=== PATIENT | female | born 1950 | race Caucasian/White ===

== ENCOUNTER → 2018-02-17 14:30 | Outpatient (CLI) | payer MEDICARE, OTHER, SELFPAY ==
--- NOTE | 2018-02-17 14:30 | DT_ITS ---
This patient was seen during an EMR downtime February 17, 2018 - February 24, 2018. This patient may have a combination of paper and electronic documentation or all paper documentation. All documentation is viewable within the e-chart portion of [facility] for each patient visit.
== END ==
PROVIDERS: Family Provider Family Medicine; PCP Family Medicine; Visit Provider Family Medicine
DX: E11.65 Type 2 diabetes mellitus with hyperglycemia (principal)
CPT/HCPCS: 36415; 82533

== ENCOUNTER → 2018-02-25 11:50 | Outpatient (CLI) | payer MEDICARE, OTHER, SELFPAY ==
[2018-02-25 15:42] LABS: Absolute Lymphocyte Count 3.57 X10^3/ul (0.83-4.51); Absolute Neutrophil Count 3.9 X10^3/uL (2.0-7.7); Basophil# 0.18 X10^3/uL; Eosinophil# 0.47 X10^3/uL; Eosinophils% 5.3 % (0-5); Hematocrit 48.9 % (37-47); Hemoglobin 15.4 g/dl (12.0-15.0); Lymphocyte # 3.57 X10^3/ul (4.0); Lymphocyte % 40.4 % (19-41); Mean Corp Hgb Conc 31.5 g/gl (32-36); Mean Corpuscular Hgb 29.1 pg (27.0-32.0); Mean Corpuscular Volume 92.4 fL (81-99); Mean Platelet Vol. 10.8 fl (6.2-12.0); Monocyte# 0.74 X10^3/uL; Monocyte% 8.4 % (0-10); Neutrophil # 3.85 X10^3/uL (2.7-7.7); Neutrophil % 43.6 % (47-70); Platelet Count 250 K/mm3 (150-450); RBC Distribution Width CV 14.2 % (11.6-14.6); RBC Distribution Width SD 48.1 fl (35.1-43.9); Red Blood Count 5.29 M/mm3 (4.2-5.4); White Blood Count 8.8 K/mm3 (4.4-11.0)
[2018-02-25 15:52] LABS: POSITIVE COUNT NO; POSITIVE DIFFERENTIAL NO; POSITIVE MORPHOLOGY NO
[2018-02-25 16:07] LABS: ALB/GLOB Ratio 0.9 RATIO (0.9-2.4); AST(SGOT) 49 U/L (15-37); Alanine Aminotransfer ALT/SGPT 65 U/L (13-56); Albumin, Serum 3.4 g/dL (3.2-5.0); Alkaline Phosphatase 66 U/L (45-117); Anion Gap 11 (5-15); BUN 12 mg/dL (7-18); BUN/Creat Ratio 12.7 RATIO (10-20); Calcium,Total 8.6 mg/dL (8.5-10.1); Chloride 103 mmol/L (98-107); Creatinine, Serum 0.94 mg/dL (0.55-1.02); EST Glomerular Filtration Rate 63 mL/min (>60); Est Glom Filt Rate - Afr Amer 76 mL/min (>60); Globulin 3.8 g/dL (2.2-4.2); Glucose 159 mg/dL (74-106); Potassium 4.2 mmol/L (3.5-5.1); Protein, Total 7.2 g/dL (6.4-8.2); Sodium Level 140 mmol/L (136-145); Thyroid Stim Hormone (TSH) 0.97 uIU/mL (0.358-3.74)
[2018-02-26 08:40] LABS: Vitamin B12 416 pg/mL (211-911); Vitamin D,25 Hydroxy 24.4 ng/mL (29.95-100.01)
[2018-02-28 18:12] LABS: ANTINUCLEAR ANTIBODIES DIRECT Negative (Negative)
== END ==
PROVIDERS: Family Provider Family Medicine; PCP Family Medicine; Visit Provider Family Medicine
DX: E11.9 Type 2 diabetes mellitus without complications (principal); E55.9 Vitamin D deficiency, unspecified; R53.83 Other fatigue
CPT/HCPCS: 36415; 80053; 82306; 82607; 84443; 85025; 86038; 86225; 86235

== ENCOUNTER → 2018-04-15 11:05 | Outpatient (CLI) | payer MEDICARE, OTHER, SELFPAY ==
[2018-04-15 12:53] LABS: Hemoglobin A1c 7.5 % (4.2-6.3)
[2018-04-15 13:04] LABS: Cholesterol 153 mg/dL (200); High Density Lipoprotein 26 mg/dL; Triglycerides 485 mg/dL
[2018-04-15 13:05] LABS: Microalbumin:Creatinine Ratio 3.9 mg/g CRE (<30 mg/g CRE)
== END ==
PROVIDERS: Family Provider Family Medicine; PCP Family Medicine; Visit Provider Nurse Practitioner
DX: E11.9 Type 2 diabetes mellitus without complications (principal)
CPT/HCPCS: 36415; 80061; 82043; 82570; 83036

== ENCOUNTER → 2018-05-07 15:21 | Outpatient (CLI) | payer MEDICARE, OTHER, SELFPAY | PROVIDERS: Family Provider Family Medicine; PCP Family Medicine; Visit Provider Family Medicine | DX: M51.36 Other intervertebral disc degeneration, lumbar region (principal); M54.16 Radiculopathy, lumbar region | CPT/HCPCS: 72148 ==

== ENCOUNTER → 2018-05-28 12:47 | Outpatient (CLI) | payer MEDICARE, OTHER, SELFPAY ==
--- NOTE | 2018-05-28 12:49 | BI_ITS ---
MAMMOGRAPHY - BILATERAL SCREENING REASON FOR EXAM: Female, 68 years old. Routine annual screening examination. PERTINENT HISTORY: Aunt with breast cancer. TECHNIQUE: Digital bilateral breast willie (3D mammographic acquisition) in the CC and MLO projections. 2-D mediolateral oblique (MLO) and craniocaudad (CC) views of both breasts were obtained. CAD: Full Field Digital Mammography with Computer Added Detection was performed. COMPARISON: Comparison is made with prior examination is May 27, 2017 and May 25, 2016. FINDINGS: Breast Composition: The breasts are heterogeneously dense, which may obscure small masses. There are no dominant masses or suspicious calcifications. Stable small benign-appearing bilateral axillary lymph nodes. A tissue clip marker is seen in the upper central portion of the left breast. No other significant abnormalities are identified. There has been no significant change since the prior study. BI/SCREENING MAMM (CAD), BILAT IMPRESSION: Stable bilateral screening mammogram. Yearly follow-up mammogram recommended. (A) ASSESSMENT CATEGORY: BIRADS Category 2: Benign. A letter regarding these results will be sent to the patient by the facility within 30 days. Approximately 10% of breast cancers are not detected by mammography. A normal mammogram should not delay biopsy of a clinically suspicious abnormality. [id number] Electronically Signed: Timothy Blnut MD at 12:37 EDT Tel [phone], Service support ,
== END ==
PROVIDERS: Family Provider Family Medicine; PCP Family Medicine; Visit Provider Family Medicine
DX: Z12.31 Encounter for screening mammogram for malignant neoplasm of breast (principal)
CPT/HCPCS: 77063; 77067

== ENCOUNTER → 2019-06-01 15:10 | Outpatient (CLI) | payer MEDICARE, OTHER, SELFPAY ==
--- NOTE | 2019-06-01 15:15 | BI_ITS ---
MAMMOGRAPHY - BILATERAL SCREENING REASON FOR EXAM: Female, 69 years old. Routine annual screening examination. PERTINENT HISTORY: Aunt with breast cancer. Prior right excisional breast biopsy and left stereotactic breast biopsy. TECHNIQUE: Digital bilateral breast shantell (3D mammographic acquisition) in the CC and MLO projections. 2-D mediolateral oblique (MLO) and craniocaudad (CC) views of both breasts were obtained. CAD: Full Field Digital Mammography with Computer Added Detection was performed. COMPARISON: Comparison is made with prior examination dated May 28, 2018 and May 27, 2017. FINDINGS: Breast Composition: The breasts are heterogeneously dense, which may obscure small masses. There are no dominant masses or suspicious calcifications. Findings suggestive of a 2 cm nodule in the retroareolar region of the right breast. Correlation with ultrasound is suggested No other significant abnormalities are identified. BI/SCREEN MAMM (CAD) W/SHANTELL BILAT IMPRESSION: Questionable nodular density in the retroareolar region of the right breast as described. Correlation with ultrasound is recommended. ASSESSMENT CATEGORY: BIRADS Category 0: Incomplete. Need additional imaging evaluation. A letter regarding these results will be sent to the patient by the facility within 30 days. Approximately 10% of breast cancers are not detected by mammography. A normal mammogram should not delay biopsy of a clinically suspicious abnormality. [id number] Electronically Signed: Timothy Blunt, at 8:32 EDT , Service support ,
== END ==
PROVIDERS: Family Provider Family Medicine; PCP Family Medicine; Referring Provider Family Medicine; Visit Provider Family Medicine
DX: Z12.31 Encounter for screening mammogram for malignant neoplasm of breast (principal)
CPT/HCPCS: 77063; 77067

== ENCOUNTER → 2019-06-04 14:48 | Outpatient (CLI) | payer MEDICARE, OTHER, SELFPAY ==
--- NOTE | 2019-06-04 14:51 | US_ITS ---
STUDY: ULTRASOUND BREAST - RIGHT REASON FOR EXAM: Female, 69 years old. Right breast nodule. TECHNIQUE: Axial and longitudinal images of the RIGHT breast were performed with a high resolution ultrasound transducer. COMPARISON: Comparison is made with prior mammogram dated June 01, 2019. FINDINGS: RIGHT Breast: There is a 4.2 mm x 4.3 mm x 3.7 mm cyst at the 2:00 position the breast at 4 cm from nipple. This corresponds to the mammographic findings. US/Breast Complete Unilateral IMPRESSION: The mammographic abnormality corresponds to a 4.2 mm x 3.7 mm x 4.3 mm cyst. ASSESSMENT CATEGORY: BIRADS Category 2: Benign. A letter regarding these results will be sent to the patient by the facility within 30 days. Electronically Signed: Timothy Blunt, at 8:26 EDT , Service support ,
== END ==
PROVIDERS: Family Provider Family Medicine; PCP Family Medicine; Referring Provider Family Medicine; Visit Provider Family Medicine
DX: N63.41 Unspecified lump in right breast, subareolar (principal)
CPT/HCPCS: 76641

== ENCOUNTER 2020-10-28 15:30 | Outpatient (RCR) | payer MEDICARE, OTHER, SELFPAY ==
--- NOTE | 2020-08-09 11:58 | HP.PTEVAL ---
Patient's Visit Information ONEAL BROWNE is a 70 year old F referred to Physical Therapy by Dr. Hair Boudreaux DO with a diagnosis of DDD s/p decompression L2-L5 07/19. Date of Evaluation: 08/09/20 Physical Therapist: Aayush Beltran, DPT, OCS, CSCS - Visit Plan Frequency: 3x /Week Duration: 4-6 Weeks Plan: 3x/week for 4-6 weeks for. 1. LB AROM flexion and extension stretching adn rotation. 2. Scar massage, STM LB,s tretch hip flexors. 3. core strength mat to gym adn progress HEP. 4. Eventual general strength - Subjective 3 weeks ago around 07/19 had spina decompression in lumbar area. Should have been done two years ago. She has chronic LBP and walking less and less. Found balance was effected. Had pain management for long time and got injections and meds. Had MRI [facility] began the process of spinal chord stimulator which helped with pain for 3 months unbelievably. Then did not help anymore. Pain returned. Saw Dr. Boudreaux a year later and had a lot of deterioration. Had surgery this month. Did real well. Went home and anaesthesia wore off and morphine wore off and felt worse. Currently feeling like she is swollen. Pain lately is up to 6/10 all the time, worse walking to 8/10. Relieved with sitting comfy chair and ice. No exercises. Sleepin hours at a time out of 9 normal. 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 Dresses self, bathroom self , shower is hardest but standing in shower long time is tough. Has shower chair. Has two walkers at home. Steps done on own but she hurts. Not employed. Wants to go to [facility] for winter. - Pain LBP Pain Intensity (Out of 10): 6 Pain Intensity Range: 6, 8 - Objective Walks 250 feet to therapy room hunching further as she goes adn painful in LB. Tires quickly.,needs to sit half way there. Transfers are I. Movement is painful. LB AROM ext barely to neutral and painful centrally, flexion is mod limtied, SB is max limited. Hip flexors max tight. reflexes 1/3 patella and achilles. Sensation LE WNl to gross light touch. Strength LE 4/5 without myotomal problems. core strength 3 extension and 3 flexion. Functionally pt is limtied with mobility and hunches easily , hesitates to stand up tall buit can with VC for a couple minutes. Incision is central in LB and healed well, moderate scar tissue underneath central incision. Battery stil present L LB. Very tight posterior tissue. - Goals Goal 1:: Pt ambulate into adn out of PT without hunching or increased pain I. Goal Time Frame: 4-6 Weeks Goal 2:: Pt have functional LB AROM without pain at rest. Goal Time Frame: 4-6 Weeks Goal 3:: Pt feel 75% better overall in mobility adn pain 2/10 at worst. Goal Time Frame: 4-6 Weeks Goal 4:: Oswestry <12 score. Goal Time Frame: 4-6 Weeks - Rehabilitation Potential Physical Therapy Diagnosis: DDD Rehabilitation Potential: Fair - Anticipated Interventions Patient/Client Instruction: Educate patient on: Condition, Plan of Care For the Purpose of:: To decrease pain, To increase ROM, To improve muscle performance and motor function, To increase tolerance to activity/condition/position Therapeutic Exercise to Include: Strength training, Postural training, Flexibilty training, Gait and locomotor training, Neuromotor development, Passive ROM, Active ROM, Scapular Strength/Stabilization For the Purpose of:: To decrease pain, To increase ROM, To improve muscle performance and motor function, To increase tolerance to activity/condition/position, To improve ability of physical actions for home/community/work/leisure Manual Therapy Techniques to Include: Scar massage, Soft tissue mobilization For the Purpose of:: To decrease pain, To increase ROM Thermo therapy (hot pack): Yes For the Purpose of:: To decrease pain Thank you for the opportunity to evaluate your patient. For Medicare and Medicare HMO plans, please review the plan of care and approve it. It will need to be FAXED BACK to us at [phone] for Medicare purposes. For Medicare only, by signing this I certify the plan of care. Please let me know if there are questions or concerns regarding this plan of care. Physician Signature: Date:
--- NOTE | 2020-09-02 14:23 | HP.PTREVAL ---
Dr. Hair Boudreaux, DO, It has been my pleasure to treat ONEAL BROWNE over the last 7 visits for DDD s/p decompression L2-L5 07/19. Please see the progress note below for an update on the physical therapy plan of care! Subjective: Better but not where I want to be yet. I can walk further without having to stop and sit. Went to [employer] yesterday for 20 minutes and could make it, that is good. Sleep is better. Gets 6 hours at a time. Pain this week up to 6/[address] Boudreaux said doing great and wants more therapy. Pt feels like she wants to be stronger to walk further and ride bicycle up to 14 miles..Doing HEP at home of walking with daily acitivites, doing original HEP fairly regularly. Objective/Function: Back extensions till painful and limited but flexiona dn SB are full and without pain today. walks slow with wide RADHIKA but improving, steps recirpocal with one rail, needs to rest after steps adn 100 feet ambulation in chair due to fatigue, not pain. Overall doing well and appropriate to cotninue per POC adn towards goals with fair prognosis. Plan Plan: 2x/week for 4 weeks. Please work toward home core strength on mat, continue LE and postural strength and conditioning toward I. Walking ad steps should be included. Goals Goal 1:: Pt ambulate into adn out of PT without hunching or increased pain I. Goal Time Frame: 4-6 Weeks Goal Progress: met, very fatigued. Goal 2:: Pt have functional LB AROM without pain at rest. Goal Time Frame: 4-6 Weeks Goal Progress: Progressing Goal 3:: Pt feel 75% better overall in mobility adn pain 2/10 at worst. Goal Time Frame: 4-6 Weeks Goal Progress: Progressing Goal 4:: Oswestry <12 score. Goal Time Frame: 4-6 Weeks Goal Progress: Progressing Goal 5:: Pt ambulate into and out of PT and one flight steps without hunching or resting from fatigue. Goal Time Frame: 4-6 Weeks Goal Progress: NEW GOAL Anticipated Interventions Patient/Client Instruction: Educate patient on: Condition, Plan of Care For the Purpose of:: To decrease pain, To increase ROM, To improve muscle performance and motor function, To increase tolerance to activity/condition/position Therapeutic Exercise to Include: Strength training, Postural training, Flexibilty training, Gait and locomotor training, Neuromotor development, Passive ROM, Active ROM, Scapular Strength/Stabilization For the Purpose of:: To decrease pain, To increase ROM, To improve muscle performance and motor function, To increase tolerance to activity/condition/position, To improve ability of physical actions for home/community/work/leisure Manual Therapy Techniques to Include: Scar massage, Soft tissue mobilization For the Purpose of:: To decrease pain, To increase ROM Thermo therapy (hot pack): Yes For the Purpose of:: To decrease pain Please do not hesitate to contact me at [phone] by phone or if you have questions or concerns regarding this new plan of care! Sincerely, Aayush Beltran, DPT, OCS, CSCS
--- NOTE | 2020-09-28 15:14 | HP.PTREVAL ---
Dr. Hair Boudreaux, DO, It has been my pleasure to treat ONEAL BROWNE over the last 12 visits for DDD s/p decompression L2-L5 07/19. Please see the progress note below for an update on the physical therapy plan of care! Subjective: Much improved but not great. In a FM flare. Back feels good, thinking about going to house in [place] due to FM. Pain is 0-3/10 in LB but rest of body hurts due to FM. Activities are OK but poor endurance and fatigues easy. Rotating body much easier nowadays. Nerve pain in butt and legs are gone. 50% better overall. To doctor next week. Stairs much easier. Objective/Function: LB AROM ext mildly limtied adn other ROM full adn none are painful. Steps reciprocal without pain. Walks I with wide RADHIKA giving trendelenberg appearance but can correct to better RADHIKA with VC safely. Overall doing great with back, FM flare throws a wrench in things. Mild SOB after steps adn many c/o overall body pain. Plan Plan: f/u 3-4 weeks to check ROM, overall pain, and consider d/c if doing well vs starting gym program if desired. Pt did not wish to start gym program right away. Goal is to maintain improvement in goals without consistent therapy adn fair prognosis. Goals Goal 1:: Pt ambulate into adn out of PT without hunching or increased pain I. Goal Time Frame: 4-6 Weeks Goal Progress: Goal Met Goal 2:: Pt have functional LB AROM without pain at rest. Goal Time Frame: 4-6 Weeks Goal Progress: Goal Met Goal 3:: Pt feel 75% better overall in mobility adn pain 2/10 at worst. Goal Time Frame: 4-6 Weeks Goal Progress: Progressing Goal 4:: Oswestry <12 score. Goal Time Frame: 4-6 Weeks Goal Progress: NT, electric out. Goal 5:: Pt ambulate into and out of PT and one flight steps without hunching or resting from fatigue. Goal Time Frame: 4-6 Weeks Goal Progress: Goal Met Anticipated Interventions Patient/Client Instruction: Educate patient on: Condition, Plan of Care For the Purpose of:: To decrease pain, To increase ROM, To improve muscle performance and motor function, To increase tolerance to activity/condition/position Therapeutic Exercise to Include: Strength training, Postural training, Flexibilty training, Gait and locomotor training, Neuromotor development, Passive ROM, Active ROM, Scapular Strength/Stabilization For the Purpose of:: To decrease pain, To increase ROM, To improve muscle performance and motor function, To increase tolerance to activity/condition/position, To improve ability of physical actions for home/community/work/leisure Manual Therapy Techniques to Include: Scar massage, Soft tissue mobilization For the Purpose of:: To decrease pain, To increase ROM Thermo therapy (hot pack): Yes For the Purpose of:: To decrease pain Please do not hesitate to contact me at [phone] by phone or if you have questions or concerns regarding this new plan of care! Sincerely, Aayush Beltran, DPT, OCS, CSCS
--- NOTE | 2020-10-28 16:03 | HP.PTREVAL ---
Dr. Hair Boudreaux, DO, It has been my pleasure to treat ONEAL BROWNE over the last 13 visits for DDD s/p decompression L2-L5 07/19. Please see the progress note below for an update on the physical therapy plan of care! Subjective: Went to see surgeon who saw my report. Got an upwalker and is using it to go longer distances as she was still limited at grocery store. Walks further with it adn gets stronger and increased endurance. Otherwise gets pain in back if walks too far. Drove self to therapy today. Pain is L LB. 7/10 trasniently until sits. Is functional with ambulating with up walker which triples her walking distance. Sleep is OK. Can lie flat without issues. Doing exercises at home adn walking around at home without walker. Can walk 3x further now then prior to surgery. My balance is good. Objective/Function: RsB causes L LBP as does extension. tender in L Lumbar paraspinals and glut. Strength 3+ hip ext adn abd B. Pt walks with up walker well with good step length adn speed. She walk short distances without it easilya nd safely but younger out to flexed psotiion quickly and c/o L LB tightness. Overall improving slowly, appropriate to cotninue for L LB soft tissue work. Fair prognosis. Plan Plan: 2x/week for 2-4 weeks for: 1. MH to L LB. 2. STM to L LB. 3. Stretching to L LB paraspinals into R sB and rotation and into gluts and ITB L. Pt to do strength adn walking herself at home , please stick to manual and STM and stretching. Goals Goal 1:: Pt ambulate into adn out of PT without hunching or increased pain I. Goal Time Frame: 4-6 Weeks Goal Progress: Goal Met Goal 2:: Pt have functional LB AROM without pain at rest. Goal Time Frame: 4-6 Weeks Goal Progress: Goal Met Goal 3:: Pt feel 75% better overall in mobility adn pain 2/10 at worst. Goal Time Frame: 4-6 Weeks Goal Progress: Progressing Goal 4:: Oswestry <12 score. Goal Time Frame: 4-6 Weeks Goal Progress: Progressing Goal 5:: Pt cotninue to progress subjectively with home walking and strength. Goal Time Frame: 2-4 Weeks Goal Progress: NEW GOAL Goal 6:: abolish tightness in LB L with movement Goal Time Frame: 2-4 Weeks Goal Progress: NEW GOAL Anticipated Interventions Patient/Client Instruction: Educate patient on: Condition, Plan of Care For the Purpose of:: To decrease pain, To increase ROM, To improve muscle performance and motor function, To increase tolerance to activity/condition/position Therapeutic Exercise to Include: Strength training, Postural training, Flexibilty training, Gait and locomotor training, Neuromotor development, Passive ROM, Active ROM, Scapular Strength/Stabilization For the Purpose of:: To decrease pain, To increase ROM, To improve muscle performance and motor function, To increase tolerance to activity/condition/position, To improve ability of physical actions for home/community/work/leisure Manual Therapy Techniques to Include: Scar massage, Soft tissue mobilization For the Purpose of:: To decrease pain, To increase ROM Thermo therapy (hot pack): Yes For the Purpose of:: To decrease pain Please do not hesitate to contact me at [phone] by phone or if you have questions or concerns regarding this new plan of care! Sincerely, Aayush Beltran, DPT, OCS, CSCS
--- NOTE | 2020-11-29 18:00 | HP.PTDCNRP_ITS ---
ONEAL BROWNE was seen in my office for initial evaluation on 08/09/20. The following Plan of Care was established for this patient: Initial Frequency: 3x /Week Initial Duration: 4-6 Weeks Patient/Client Instruction: Educate patient on: Condition, Plan of Care For the Purpose of:: To decrease pain, To increase ROM, To improve muscle performance and motor function, To increase tolerance to activity/condition/position Therapeutic Exercise to Include: Strength training, Postural training, Flexibilty training, Gait and locomotor training, Neuromotor development, Passive ROM, Active ROM, Scapular Strength/Stabilization For the Purpose of:: To decrease pain, To increase ROM, To improve muscle performance and motor function, To increase tolerance to activity/condition/position, To improve ability of physical actions for home/c ommunity/work/leisure Manual Therapy Techniques to Include: Scar massage, Soft tissue mobilization For the Purpose of:: To decrease pain, To increase ROM Thermo therapy (hot pack): Yes For the Purpose of:: To decrease pain This patient was last seen in our office 10/28/20. Pertinent comments regarding their Physical therapy will appear below: Pt seen 13 visits of POC and was scheduled to continue. However, upon calling her on 11/29, she stated that doctor injected her adn she is doing better adn does not need to return to therapy. I will discontinue at this point at her request. At this point I will be discontinuing this patient from physical therapy. I would be happy to see this patient again in the future if found appropriate by the physician. Thank you! Aayush Beltran, DPT, OCS, CSCS
== END 2020-10-28 19:00 | disposition home or self-care (01) ==
LOC: PT 15:30
PROVIDERS: PCP Family Medicine; Referring Provider Orthopaedic Surgery Orthopaedic Surgery of the Spine; Visit Provider Orthopaedic Surgery Orthopaedic Surgery of the Spine
DX: Z47.89 Encounter for other orthopedic aftercare (principal); M51.36 Other intervertebral disc degeneration, lumbar region
CPT/HCPCS: 97110; 97140; 97162; 97164

== ENCOUNTER 2020-11-17 11:01 | Outpatient (RCR) | payer MEDICARE, OTHER, SELFPAY ==
[2018-07-03 12:50] VITALS: BMI 37.8
[2020-11-17] MEDS: COVID-19 VACC, MRNA(PFIZER)/PF 30 MCG/0.3 ML SYRINGE IM (13:07)
[2020-12-08] MEDS: COVID-19 VACC, MRNA(PFIZER)/PF 30 MCG/0.3 ML SYRINGE IM (13:31)
== END 2020-11-17 23:59 ==
LOC: IMMUN 11:01
PROVIDERS: PCP Family Medicine; Visit Provider Family Medicine
DX: Z23 Encounter for immunization (principal)
CPT/HCPCS: 0001A; 0002A; 91300

== ENCOUNTER 2021-04-02 07:48 | Emergency (ER) | payer MEDICARE, OTHER, SELFPAY ==
[2021-04-02] VITALS (10 sets, daily range): BP systolic 113–164; BP diastolic 62–101; PULSE 84–95; RESP 14–20; TEMP 36.7–37.4; O2SAT 6–96; BMI 44.4
--- NOTE | 2021-04-02 07:59 | ED.VIS.BACK ---
HPI History of Present Illness Chief Complaint: Back Informant: patient and spouse/S.O. Onset/Context/Timing Onset: Days Context: Gradual Onset Narrative Narrative: Patient is a 71-year-old female with extensive back history presenting with intractable back pain. Patient had a repeat spinal surgery approximately 10 days ago. This was performed by Dr. Boudreaux at [facility]. She states that she had a bulging disc that was pressing on her lower spinal cord. Then 4 days ago she had a repeat procedure because her wound had opened up and it had to be cleaned out. She was discharged home even though she did not feel safe going home. She has been taking Flexeril and 10 mg of Percocet with no relief of her pain. She notes that she has been able to pee all night. She tried to sit on the toilet and then could not get up. She had worsening pain in her lower back. States does really radiate down either legs. She notes that her legs return to feel numb but she thinks she was stuck on the toilet for too long. She notes the numbness seems to have improved. EMS states that they were able to get her to walk a couple steps to the cot however she was in excruciating pain. She not have any pain medication prior to arrival but did take 10 mg of Percocet around 6 AM. Patient states she had a low-grade temperature of 99.9 but denies any chills. She states she is concerned she is dehydrated. She denies any new numbness in her groin region but does have a hard time answering that question because she is in so much pain. No reported rash. States the back pain has been worsening since she was discharged home. states that he is hoping to get some type of home health because he feels that he cannot take care of her adequately. Chart review shows that patient was discharged 3 days ago with a prescription for Keflex 500 mg 4 times a day as well as Percocet and Flexeril as previously described. [facility] Medical History Anxiety and depression Arthritis Back problem Cataracts, bilateral Chronic fatigue Fibromyalgia High cholesterol High triglycerides Hormone deficiency HTN (hypertension) nerve damage lower abdomen Neuropathy Osteoarthritis Pernicious anemia Pulmonary embolism Thyroid disease Type 2 diabetes mellitus Vision problem Vitamin deficiency Home Medications alprazolam 0.5 mg tablet 0.5 mg PO BID PRN 03/18/18 [History Last Taken Unknown] amlodipine 5 mg tablet 5 mg PO QDAY 03/18/18 [History Last Taken Unknown] aspirin 81 mg tablet,delayed release 81 mg PO QDAY 03/18/18 [History Last Taken Unknown] atorvastatin 20 mg tablet 20 mg PO QDAY 03/18/18 [History Last Taken Unknown] celecoxib 200 mg capsule 200 mg PO BID PRN 03/18/18 [History Last Taken Unknown] cyclobenzaprine 10 mg tablet 10 mg PO BID PRN tab 03/18/18 [History Last Taken Unknown] diclofenac sodium 1 % topical gel 2 g TOPICAL ONCE PRN 03/18/18 [History Last Taken Unknown] flash glucose sensor #1 ea 03/18/18 [Rx Last Taken Unknown] flash glucose sensor #3 ea 03/18/18 [Rx Last Taken Unknown] flash glucose sensor #3 ea 03/18/18 [Rx Last Taken Unknown] hydromorphone 4 mg tablet 4 mg PO Q6H PRN 03/18/18 [History Last Taken Unknown] insulin detemir U-100 100 unit/mL subcutaneous solution 65 unit SC BID ml 03/18/18 [History Last Taken Unknown] insulin lispro 100 unit/mL subcutaneous solution See Rx Instructions SC TID ml 03/18/18 [History Last Taken Unknown] levothyroxine 200 mcg tablet 200 mcg PO QDAY 03/18/18 [History Last Taken Unknown] lidocaine 5 % topical patch 1 patch TOPICAL Q24H PRN 03/18/18 [History Last Taken Unknown] oxycodone 40 mg tablet,crush resistant,extended release 12 hr 40 mg PO TID tab 03/18/18 [History Last Taken Unknown] spironolactone 25 mg tablet 25 mg PO QDAY 03/18/18 [History Last Taken Unknown] vitamin b12 IM .q month 03/18/18 [History Last Taken Unknown] OneTouch Ultra Blue Test Strip #450 ea NS 05/28/18 [Rx Last Taken Unknown] Allergy/AdvReac Type Severity Reaction Status Date / Time gabapentin [From Neurontin] Allergy Unknown Unknown Verified 04/02/21 07:57 metronidazole [From Flagyl] Allergy Unknown Unknown Verified 04/02/21 07:57 morphine Allergy Unknown Unknown Verified 04/02/21 07:57 sulfamethoxazole Allergy Unknown Unknown Verified 04/02/21 07:57 [From ] trimethoprim [From ] Allergy Unknown Unknown Verified 04/02/21 07:57 ketocogel shampoo Allergy Unknown Unknown Uncoded 04/02/21 07:57 Family History Unknown Cancer Heart disease Hypertension High cholesterol Skin cancer Surgical History H/O: hysterectomy Hx of cholecystectomy Pulmonary embolism S/P appendectomy S/P cataract surgery Small bowel obstruction Social History Smoking Status: Current every day smoker tobacco type: cigarettes alcohol intake: never substance use type: does not use ROS ROS ED Constitutional Constitutional ED: Denies chills or fever(s) Eyes Eyes: Denies change in vision ENT ENT ED: Denies rhinorrhea or sore throat Cardiovascular Cardiovascular: Denies chest pain Respiratory/Chest Respiratory/Chest: Denies dyspnea Gastrointestinal Gastrointestinal: Reports constipation; Denies abdominal pain or vomiting Genitourinary Genitourinary ED: Denies dysuria, hematuria or urinary frequency Musculoskeletal Musculoskeletal: Reports back pain; Denies myalgias or neck pain Integumentary Denies rash Neurologic Neurologic: Denies headache(s), paresthesias or weakness Psychiatric Psychiatric: Reports anxiety; Denies depression EXAM Physical Exam Const Vital Signs: 04/02/21 07:49 04/02/21 07:54 04/02/21 09:02 Temperature 99.2 F H 99.2 F H 99.3 F H Temperature Source Oral Oral Oral Pulse Rate 84 84 91 Respiratory Rate 17 17 17 Blood Pressure 150/98 H 150/98 H 121/77 H Blood Pressure Mean 115 115 91 Pulse Ox 94 94 91 Oxygen Delivery Method Room Air Room Air Nasal Cannula Oxygen Flow Rate (L/min) 3 04/02/21 10:03 04/02/21 10:50 04/02/21 12:19 Temperature 98.1 F 98.0 F 98.4 F Temperature Source Oral Oral Oral Pulse Rate 89 90 89 Respiratory Rate 18 20 H 18 Blood Pressure 113/77 114/78 156/69 H Blood Pressure Mean 89 90 98 Pulse Ox 92 93 91 Oxygen Delivery Method Nasal Cannula Nasal Cannula Room Air Oxygen Flow Rate (L/min) 3 3 04/02/21 12:32 04/02/21 14:59 04/02/21 16:44 Temperature Temperature Source Pulse Rate 90 95 93 Respiratory Rate 20 H 14 18 Blood Pressure 164/67 H 145/62 H 123/101 H Blood Pressure Mean 99 89 108 Pulse Ox 93 92 6 Oxygen Delivery Method Nasal Cannula Nasal Cannula Oxygen Flow Rate (L/min) 4 3 04/02/21 16:51 Temperature Temperature Source Pulse Rate 93 Respiratory Rate 18 Blood Pressure 123/101 H Blood Pressure Mean 108 Pulse Ox 96 Oxygen Delivery Method Room Air Oxygen Flow Rate (L/min) Positive well nourished, well developed and obese General Appearance ED: well developed and other Distress secondary to pain Nutritional Appearance: obese HEENT Negative for tenderness Eyes PERRL and EOMs intact bilaterally Neck supple and no JVD Resp normal respiratory effort and clear to auscultation bilaterally Cardio regular rate and regular rhythm Cardio Narrative: 2+ bilateral DP pulses GI normal to inspection, nondistended, normoactive bowel sounds, soft to palpation and non-tender Back/Spine Back/Spine Narrative: Midline surgical incision of lumbar spine with sutures in place. No significant tenderness to light palpation and no associated fluctuance or overlying erythema. No drainage is appreciated. Patient has diffuse pain to the lumbar back but it is not localized midline or paraspinal. Difficult to reproduce with direct palpation. Good rectal tone. Extremity normal to inspection Extremity Narrative: Unable to elicit Babinski reflex bilaterally. She is moving her lower extremities. 5 out of 5 strength with dorsiflexion and plantar flexion. Plantar flexion does elicit significant pain in the patient's back. Not able to test strength with hip flexion due to pain. General Extremety ED: Negative for edema General Extremity: Negative for edema Neuro oriented x3 Sensorium / Orientation: alert Psych Attitude: agitated Mood & Affect: depressed Skin Skin Narrative: Midline surgical lumbar incision with sutures in place but no obvious signs of associated infection or abscess. MDM MDM MDM Narrative Medical decision making narrative: Patient evaluated for worsening low back pain. She has had recent lumbar surgery and then subsequent washout for wound dehiscence. This is all performed at [facility]. She is currently on Keflex. She states that she has not been urinating throughout the night and patient clinically appears dehydrated. She has good rectal tone. Patient given 1 mg IV Dilaudid for pain control as well as Zofran. She is also given IV fluids. She does have some mild desaturation associated with the pain medication but no improvement of her pain. She states it does not feel like I gave her anything. Patient does have obstructive sleep apnea which is probably the underlying cause of the hypoxia. She is redosed with Dilaudid. She does have a leukocytosis and blood cultures are pending. Patient has multiple doses of IV Dilaudid for pain control. She is ultimately given IV ketamine at 0.3 mg/kg which does seem to improve her pain as she is moving around now but she still states she is in severe pain. She is also given fentanyl. She require admission for intractable pain. I spoke with spine on-call for her orthopedist who states that sounds like this is more of a pain control issue. Patient does not have any findings concerning for cauda equina syndrome. She is not P when she is in the ER and bladder scan is given verbal rates we did straight catheter and she had 500 cc out. I do not think she is acute urinary retention. She will be admitted at [facility] as that is where her surgery was. I did discuss with admitting physician who recommended CT to make sure she not have any signs of an abscess. CT does show changes but I think these are more postsurgical and there is no large fluid collection. Lab Data Attestation: I reviewed the patient's lab results. Labs: Laboratory Results - last 24 hr 04/02/21 04/02/21 04/02/21 08:20 08:20 08:20 WBC 17.0 H RBC 4.56 Hgb 13.9 Hct 43.8 MCV 96.1 MCH 30.5 MCHC 31.7 L RDW Std Deviation 50.9 H RDW Coeff of Ela 14.5 Plt Count 271 MPV 10.0 Immature Gran % (Auto) 1.400 H Neut % (Auto) 82.9 H Lymph % (Auto) 6.6 L [place] % (Auto) 6.9 Eos % (Auto) 1.6 Baso % (Auto) 0.6 Absolute Neuts (auto) 14.1 H Absolute Lymphs (auto) 1.12 Nucleated RBC % 0 Sodium 136 Potassium 3.6 Chloride 102 Carbon Dioxide 27.0 Anion Gap 7 BUN 13 Creatinine 0.95 Estim Creat Clear Calc 52.82 Est GFR (MDRD) Af Amer 75 Est GFR (MDRD) Non-Af 62 BUN/Creatinine Ratio 13.7 Glucose 176 H Lactic Acid 1.1 Calcium 8.6 Urine Color Urine Clarity Urine pH Ur Specific [place] Urine Protein Urine Glucose (UA) Urine Ketones Urine Occult Blood Urine Nitrite Urine Bilirubin Urine Urobilinogen Ur Leukocyte Esterase Urine RBC Urine WBC Ur Squamous Epith Cells Urine Bacteria Urine Mucus 04/02/21 14:55 WBC RBC Hgb Hct MCV MCH MCHC RDW Std Deviation RDW Coeff of Ela Plt Count MPV Immature Gran % (Auto) Neut % (Auto) Lymph % (Auto) [place] % (Auto) Eos % (Auto) Baso % (Auto) Absolute Neuts (auto) Absolute Lymphs (auto) Nucleated RBC % Sodium Potassium Chloride Carbon Dioxide Anion Gap BUN Creatinine Estim Creat Clear Calc Est GFR (MDRD) Af Amer Est GFR (MDRD) Non-Af BUN/Creatinine Ratio Glucose Lactic Acid Calcium Urine Color Yellow Urine Clarity Clear Urine pH 5.0 Ur Specific [place] 1.015 Urine Protein 15 H Urine Glucose (UA) Normal Urine Ketones Negative Urine Occult Blood Negative Urine Nitrite Negative Urine Bilirubin Negative Urine Urobilinogen Normal Ur Leukocyte Esterase Negative Urine RBC 0 SEEN Urine WBC 0 SEEN Ur Squamous Epith Cells 0-5 SEEN Urine Bacteria RARE Urine Mucus 0 SEEN Radiography Diagnostic Testing: Radiology Impression Lumbar Spine CT 04/02/21 13:24 IMPRESSION: 1. Limited soft tissue detail due to patient obesity and motion. 2. No abnormal contrast enhancing lesions intradurally and extradurally. 3. Pronounced stenosis of the bilateral L5-S1 intervertebral neural foramina, worse since 05/07/2018. 4. Moderate stenosis of the right L4-L5 intervertebral neural foramen, worse since 05/07/2018. 5. 2 small gas bubbles behind the L2 vertebral body is suggestive of posterior annular tear. I am uncertain whether this is coming from the L1-L2 disc space or the L2-L3 disc space. 6. Calcification of the posterior annulus behind the small left L2-L3 posterior disc protrusion. Electronically Signed: Silverio Melvin MD at 14:46 EDT , Service support , Discharge Plan Triage Chief Complaint: Back ED Provider: Eladia Akbar Dx/Rx/DC Orders Clinical Impression: Intractable back pain, Leukocytosis Prescriptions: No Action atorvastatin 20 mg tablet 20 mg PO QDAY RF: 0 amlodipine 5 mg tablet 5 mg PO QDAY RF: 0 spironolactone 25 mg tablet 25 mg PO QDAY RF: 0 levothyroxine [Synthroid] 200 mcg tablet 200 mcg PO QDAY RF: 0 oxycodone [OxyContin] 40 mg tablet,oral only,ext.rel.12 hr 40 mg PO TID RF: 0 hydromorphone [Dilaudid] 4 mg tablet 4 mg PO Q6H PRNRF: 0 cyclobenzaprine 10 mg tablet 10 mg PO BID PRNRF: 0 celecoxib [Celebrex] 200 mg capsule 200 mg PO BID PRNRF: 0 aspirin 81 mg tablet,delayed release (DR/EC) 81 mg PO QDAY RF: 0 alprazolam [Xanax] 0.5 mg tablet 0.5 mg PO BID PRNRF: 0 insulin detemir U-100 [Levemir U-100 Insulin] 100 unit/mL solution 65 unit SC BID RF: 0 insulin lispro [Humalog U-100 Insulin] 100 unit/mL solution See Rx Instructions SC TID RF: 0 vitamin b12 IM .q month RF: 0 diclofenac sodium [Voltaren] 1 % gel 2 g TOPICAL ONCE PRNRF: 0 lidocaine [Lidoderm] 5 % adhesive patch,medicated 1 patch TOPICAL Q24H PRNRF: 0 (DME) flash glucose sensor [FreeStyle Eryn 10 Day Sensor] kit See Dose Instructions .ROUTE .MEDSUPPLY Qty: 1 RF: 0 (DME) flash glucose sensor [FreeStyle Eryn 10 Day Sensor] kit See Dose Instructions .ROUTE .MEDSUPPLY Qty: 3 RF: 11 (DME) flash glucose sensor [FreeStyle Eryn 10 Day Sensor] kit See Dose Instructions .ROUTE .MEDSUPPLY Qty: 3 RF: 11 (DME) blood sugar diagnostic [OneTouch Ultra Blue Test Strip] strip See Dose Instructions .ROUTE .MEDSUPPLY Qty: 450 RF: 3 Primary Care Provider: Madeline Choe Referrals: Madeline Choe DO [Primary Care Provider] - Disposition Disposition: Transfer to Another Type HCF Discharge Location: [facility] Discharge Date/Time: 04/02/21 16:58
[2021-04-02] MEDS: 0.9% Normal Saline 1,000 ML 1000 ML IV (08:18)
[2021-04-02] MEDS: Ondansetron 4 MG/2 ML Vial IV (08:19)
[2021-04-02] MEDS: HYDROmorphone 1 MG/ML Syringe IV ×3 (08:20→10:17)
[2021-04-02 08:49] LABS: Absolute Lymphocyte Count 1.12 X10^3/uL (0.83-4.51); Absolute Neutrophil Count 14.1 X10^3/uL (2.0-7.7); Basophil# 0.11 X10^3/uL; Basophil% 0.6 % (0-1); Eosinophil# 0.27 X10^3/uL; Eosinophils% 1.6 % (0-5); Hematocrit 43.8 % (37-47); Hemoglobin 13.9 g/dL (12.0-15.0); Lymphocyte # 1.12 X10^3/ul (0.83-4.51); Lymphocyte % 6.6 % (19-41); Mean Corp Hgb Conc 31.7 g/dL (32-36); Mean Corpuscular Hgb 30.5 pg (27.0-32.0); Mean Corpuscular Volume 96.1 fL (81-99); Monocyte# 1.17 X10^3/uL; Monocyte% 6.9 % (0-10); NRBC Flagged by Analyzer 0 % (0-5); Neutrophil # 14.05 X10^3/uL (2.7-7.7); Neutrophil % 82.9 % (47-70); Platelet Count 271 K/mm3 (150-450); RBC Distribution Width CV 14.5 % (11.6-14.6); RBC Distribution Width SD 50.9 fl (35.1-43.9); Red Blood Count 4.56 M/mm3 (4.2-5.4)
[2021-04-02 08:59] LABS: Anion Gap 7 (5-15); BUN 13 mg/dL (7-18); BUN/Creat Ratio 13.7 RATIO (10-20); Calcium,Total 8.6 mg/dL (8.5-10.1); Chloride 102 mmol/L (98-107); Creatinine, Serum 0.95 mg/dL (0.55-1.02); EST Glomerular Filtration Rate 62 mL/min (>60); Est Glom Filt Rate - Afr Amer 75 mL/min (>60); Estimated Creatinine Clearance 52.82 ml/min; Glucose 176 mg/dL (74-106); Potassium 3.6 mmol/L (3.5-5.1); Sodium Level 136 mmol/L (136-145)
--- NOTE | 2021-04-02 09:01 | ED.RN ---
x3 staff assist to roll pt to her side for Dr Akbar to exam back. Pt continues to report severe pain.
[2021-04-02 09:17] LABS: Lactic Acid 1.1 mmol/L (0.4-1.9)
--- NOTE | 2021-04-02 09:55 | NURSING ---
CALLING DR QUITA HUMMEL, [facility] [phone]
--- NOTE | 2021-04-02 10:15 | NURSING ---
CALLED [facility], TALKED TO GAIL, ABOUT TRANSFER. NO BEDS TIL DISCHARGES THIS AFTERNOON
[2021-04-02] MEDS: diazePAM 5 MG Tablet PO (10:41)
--- NOTE | 2021-04-02 11:43 | ED.RN ---
Pt aware of transfer of pt to [facility] for pain control. Pt states he needs help at home. 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 Pt had continued to required pain medication but at a lesser rate. states pt was then in a recliner for years and would not get up. This RN attempted to support . He will be headed home for just a bit. Pt screaming in pain, confused
[2021-04-02] MEDS: Ketamine HCl 500 MG/5 ML Vial 38.58 MG IV (12:29)
--- NOTE | 2021-04-02 13:03 | ED.RN ---
Pt states the Ketamine has sent her on a psychological trip. When asked to explain . Pt states why does it matter. Pt alert and oriented.Pt requests more Dilaudid. Offered a drink of water. Pt able to drink.This RN attempt to support pt
--- NOTE | 2021-04-02 13:24 | CT_ITS ---
STUDY: CT LUMBAR SPINE WITH CONTRAST REASON FOR EXAM: Female, 71 years old. Back pain RADIATION DOSAGE (If Supplied By Facility): CTDIvol = ( 49.74 ) mGy, DLP = ( 1756.13 ) mGycm TECHNIQUE: The patient was scanned in a multi detector CT scanner. High resolution transaxial imaging was performed following the intravenous administration of IV 100mL Isovue-370. Images were obtained from lower T10 to S3. Sagittal and coronal images were reconstructed. Individualized dose optimization techniques were used for this CT. COMPARISON: MRI lumbar spine without contrast 05/07/2018. FINDINGS: Straightening of the lumbar spine is unchanged. There is no substantial scoliosis. Normal vertebrae of the lumbar spine. T10-T11, T11-T12 and T12-L1: Normal endplates. Normal disc height and morphology. Normal central canal and bilateral lateral recesses. Mild bilateral degenerative facet arthropathy. Normal bilateral intervertebral neural foramina. L1-2: Normal endplates. Pronounced disc space height narrowing. Minimal left ventral extra dural defect is calcification of the protruding annulus. Normal central canal and bilateral lateral recesses. Normal facet joints. Normal bilateral intervertebral neural foramina. L2-3: Mild endplate sclerosis. Moderate disc space height narrowing. 2 gas bubbles in the ventral epidural space behind the upper L2 vertebral body suggestive of posterior annular tear. I am uncertain whether this is coming from the L1-L2 disc space posterior annulus or the L2-L3 disc space posterior annulus. No ventral extradural defect. Left L2 hemilaminectomy defect. Mild bilateral degenerative facet arthropathy. Moderate stenosis of the left intervertebral neural foramina. Mild stenosis of the right intervertebral neural foramen. L3-4: Normal endplates. Mild disc space height narrowing with degenerative vacuum phenomenon. Normal central canal and bilateral lateral recesses. Moderate bilateral degenerative facet hypertrophy. Normal bilateral intervertebral neural foramina. L4-5: Normal endplates. Mild disc space height narrowing. Normal central canal and bilateral lateral recesses. Moderate pronounced right degenerative facet arthropathy. Moderate left degenerative facet arthropathy. Minimal degenerative anterolisthesis of L4 on L5 is unchanged. Moderate stenosis of the right intervertebral neural foramen. Normal left intervertebral neural foramen. L5-S1: Normal endplates. Mild disc space height narrowing. Normal central canal and bilateral lateral recesses. Moderate bilateral degenerative facet arthropathy. Pronounced stenosis of the bilateral intervertebral neural foramina. Normal visualized paraspinous soft tissue structures. No abnormal contrast enhancing lesions intradurally and extradurally. CT/Spine Lumbar WITH Contrast IMPRESSION: 1. Limited soft tissue detail due to patient obesity and motion. 2. No abnormal contrast enhancing lesions intradurally and extradurally. 3. Pronounced stenosis of the bilateral L5-S1 intervertebral neural foramina, worse since 05/07/2018. 4. Moderate stenosis of the right L4-L5 intervertebral neural foramen, worse since 05/07/2018. 5. 2 small gas bubbles behind the L2 vertebral body is suggestive of posterior annular tear. I am uncertain whether this is coming from the L1-L2 disc space or the L2-L3 disc space. 6. Calcification of the posterior annulus behind the small left L2-L3 posterior disc protrusion. Electronically Signed: Silverio Melvin MD at 14:46 EDT , Service support ,
--- NOTE | 2021-04-02 13:47 | ED.RN ---
Pt rolled on left side. assist of 3. pt able to roll without screaming
[2021-04-02 15:03] LABS: Mucous, Urine 0 SEEN /hpf (<or=2+); Red Blood Cells-Urine 0 SEEN /hpf (0-5); White Blood Cells 0 SEEN /hpf (0-5)
[2021-04-02 15:05] LABS: Color, Urine Yellow (Yellow); Glucose, Dipstick Normal (Normal); Ketone-Dipstick Negative (Negative); Leukocyte Esterase-Dipstick Negative /ul (Negative); Nitrite-Dipstick Negative (Negative); Occult Blood-Urine Negative /ul (Negative); Protein-Dipstick 15 mg/dl (Negative); Specific Gravity, Urine 1.015 (1.002-1.030); Urine Bilirubin Dipstick Negative (Negative); Urine Clarity Clear (Clear); Urine Urobilinogen Normal (Normal)
[2021-04-02 15:11] LABS: Bacteria RARE /hpf (None Seen); Squamous Epithelial Cells - UA 0-5 SEEN /hpf (5-10)
--- NOTE | 2021-04-02 15:12 | NURSING ---
CALLED [facility] FOR DR HIDALGO
--- NOTE | 2021-04-02 15:47 | NURSING ---
[facility] [id number] DR GOLDSMITH NURSE TO NURSE [phone]
[2021-04-02] MEDS: fentaNYL 100 MCG/2 ML Ampul 50 MCG IV (15:55)
--- NOTE | 2021-04-02 16:01 | NURSING ---
CALLED [facility], ETA IS 20 MIN
--- NOTE | 2021-04-03 02:14 | ED.RN ---
lab called with positive blood culture results. gram + cocci in rods in both bottles. Patient was transferred to [facility]. spoke with nursing staff there. copy of report faxed to them
== END 2021-04-02 16:58 | disposition other institution (70) ==
PROVIDERS: Emergency Provider Emergency Medicine; PCP Family Medicine
DX: M54.9 Dorsalgia, unspecified (principal); D72.829 Elevated white blood cell count, unspecified; E11.40 Type 2 diabetes mellitus with diabetic neuropathy, unspecified; I10 Essential (primary) hypertension; E07.9 Disorder of thyroid, unspecified; E78.00 Pure hypercholesterolemia, unspecified; M19.90 Unspecified osteoarthritis, unspecified site; G47.33 Obstructive sleep apnea (adult) (pediatric); F32.9 Major depressive disorder, single episode, unspecified; F41.9 Anxiety disorder, unspecified; E66.9 Obesity, unspecified; F17.210 Nicotine dependence, cigarettes, uncomplicated; Z79.4 Long term (current) use of insulin; Z79.82 Long term (current) use of aspirin; Z79.899 Other long term (current) drug therapy; Z86.711 Personal history of pulmonary embolism
CPT/HCPCS: 51702; 72132; 80048; 81001; 83605; 85025; 87040; 87077; 87149; 87186; 96361; 96374; 96375; 96376; 99285; J7030; Q9967; A4216; J2405

== ENCOUNTER 2021-05-15 08:52 | Outpatient (RCR) | payer MEDICARE, OTHER, SELFPAY ==
[2021-04-02 07:49] VITALS: BMI 44.4
[2021-04-17 16:06] LABS: Hematocrit 43.6 % (37-47); Hemoglobin 13.7 g/dL (12.0-15.0); Mean Corp Hgb Conc 31.4 g/dL (32-36); Mean Corpuscular Hgb 29.9 pg (27.0-32.0); Mean Corpuscular Volume 95.2 fL (81-99); Mean Platelet Vol. 9.9 fl (6.2-12.0); Platelet Count 567 K/mm3 (150-450); RBC Distribution Width CV 14.3 % (11.6-14.6); RBC Distribution Width SD 49.7 fl (35.1-43.9); Red Blood Count 4.58 M/mm3 (4.2-5.4)
[2021-04-17 16:29] LABS: ALB/GLOB Ratio 0.5 RATIO (0.9-2.4); AST(SGOT) 14 U/L (15-37); Alanine Aminotransfer ALT/SGPT 22 U/L (13-56); Albumin, Serum 2.8 g/dL (3.2-5.0); Alkaline Phosphatase 87 U/L (45-117); Anion Gap 6 (5-15); BUN 9 mg/dL (7-18); BUN/Creat Ratio 10.6 RATIO (10-20); Calcium,Total 9.2 mg/dL (8.5-10.1); Chloride 101 mmol/L (98-107); Creatinine, Serum 0.85 mg/dL (0.55-1.02); EST Glomerular Filtration Rate 70 mL/min (>60); Est Glom Filt Rate - Afr Amer 85 mL/min (>60); Globulin 5.3 g/dL (2.2-4.2); Glucose 137 mg/dL (74-106); Potassium 4.1 mmol/L (3.5-5.1); Protein, Total 8.1 g/dL (6.4-8.2); Sodium Level 136 mmol/L (136-145)
[2021-04-17 16:33] LABS: Erythrocyte Sedimentation Rate 90 mm/hr (0-30)
[2021-04-24 16:43] LABS: Hematocrit 44.1 % (37-47); Hemoglobin 13.8 g/dL (12.0-15.0); Mean Corp Hgb Conc 31.3 g/dL (32-36); Mean Corpuscular Hgb 29.5 pg (27.0-32.0); Mean Corpuscular Volume 94.2 fL (81-99); Mean Platelet Vol. 9.8 fl (6.2-12.0); Platelet Count 391 K/mm3 (150-450); RBC Distribution Width CV 13.9 % (11.6-14.6); RBC Distribution Width SD 47.8 fl (35.1-43.9); Red Blood Count 4.68 M/mm3 (4.2-5.4); White Blood Count 9.4 K/mm3 (4.4-11.0)
[2021-04-24 17:01] LABS: Erythrocyte Sedimentation Rate 66 mm/hr (0-30)
[2021-04-24 19:11] LABS: ALB/GLOB Ratio 0.6 RATIO (0.9-2.4); AST(SGOT) 13 U/L (15-37); Alanine Aminotransfer ALT/SGPT 19 U/L (13-56); Albumin, Serum 3.1 g/dL (3.2-5.0); Alkaline Phosphatase 112 U/L (45-117); Anion Gap 6 (5-15); BUN 12 mg/dL (7-18); BUN/Creat Ratio 14.7 RATIO (10-20); Calcium,Total 9.7 mg/dL (8.5-10.1); Chloride 102 mmol/L (98-107); Creatinine, Serum 0.82 mg/dL (0.55-1.02); EST Glomerular Filtration Rate 73 mL/min (>60); Est Glom Filt Rate - Afr Amer 89 mL/min (>60); Globulin 5.2 g/dL (2.2-4.2); Glucose 99 mg/dL (74-106); Potassium 4.3 mmol/L (3.5-5.1); Protein, Total 8.3 g/dL (6.4-8.2); Sodium Level 138 mmol/L (136-145)
[2021-05-01 09:45] LABS: Erythrocyte Sedimentation Rate 63 mm/hr (0-30)
[2021-05-01 09:47] LABS: Hematocrit 45.9 % (37-47); Hemoglobin 14.2 g/dL (12.0-15.0); Mean Corp Hgb Conc 30.9 g/dL (32-36); Mean Corpuscular Hgb 28.9 pg (27.0-32.0); Mean Corpuscular Volume 93.5 fL (81-99); Mean Platelet Vol. 10.2 fl (6.2-12.0); Platelet Count 307 K/mm3 (150-450); RBC Distribution Width CV 14.1 % (11.6-14.6); RBC Distribution Width SD 47.8 fl (35.1-43.9); Red Blood Count 4.91 M/mm3 (4.2-5.4); White Blood Count 8.8 K/mm3 (4.4-11.0)
[2021-05-01 09:56] LABS: ALB/GLOB Ratio 0.6 RATIO (0.9-2.4); AST(SGOT) 14 U/L (15-37); Alanine Aminotransfer ALT/SGPT 21 U/L (13-56); Albumin, Serum 3.2 g/dL (3.2-5.0); Alkaline Phosphatase 122 U/L (45-117); Anion Gap 5 (5-15); BUN 11 mg/dL (7-18); BUN/Creat Ratio 12.6 RATIO (10-20); Calcium,Total 9.3 mg/dL (8.5-10.1); Chloride 102 mmol/L (98-107); Creatinine, Serum 0.87 mg/dL (0.55-1.02); EST Glomerular Filtration Rate 68 mL/min (>60); Est Glom Filt Rate - Afr Amer 82 mL/min (>60); Glucose 169 mg/dL (74-106); Potassium 4.1 mmol/L (3.5-5.1); Protein, Total 8.2 g/dL (6.4-8.2); Sodium Level 136 mmol/L (136-145)
[2021-05-08 14:08] LABS: Hemoglobin 13.9 g/dL (12.0-15.0); Mean Corp Hgb Conc 31.6 g/dL (32-36); Mean Corpuscular Hgb 28.8 pg (27.0-32.0); Mean Corpuscular Volume 91.3 fL (81-99); Mean Platelet Vol. 9.6 fl (6.2-12.0); Platelet Count 318 K/mm3 (150-450); RBC Distribution Width SD 46.9 fl (35.1-43.9); Red Blood Count 4.82 M/mm3 (4.2-5.4); White Blood Count 9.8 K/mm3 (4.4-11.0)
[2021-05-08 14:26] LABS: Erythrocyte Sedimentation Rate 61 mm/hr (0-30)
[2021-05-08 14:32] LABS: ALB/GLOB Ratio 0.6 RATIO (0.9-2.4); AST(SGOT) 16 U/L (15-37); Alanine Aminotransfer ALT/SGPT 21 U/L (13-56); Albumin, Serum 3.2 g/dL (3.2-5.0); Alkaline Phosphatase 126 U/L (45-117); Anion Gap 4 (5-15); BUN 10 mg/dL (7-18); BUN/Creat Ratio 14.9 RATIO (10-20); Calcium,Total 9.8 mg/dL (8.5-10.1); Chloride 102 mmol/L (98-107); Creatinine, Serum 0.67 mg/dL (0.55-1.02); EST Glomerular Filtration Rate 92 mL/min (>60); Est Glom Filt Rate - Afr Amer 111 mL/min (>60); Globulin 5.1 g/dL (2.2-4.2); Glucose 101 mg/dL (74-106); Potassium 4.1 mmol/L (3.5-5.1); Protein, Total 8.3 g/dL (6.4-8.2); Sodium Level 136 mmol/L (136-145)
[2021-05-15 09:15] LABS: Erythrocyte Sedimentation Rate 37 mm/hr (0-30)
[2021-05-15 09:17] LABS: Hematocrit 45.1 % (37-47); Hemoglobin 14.3 g/dL (12.0-15.0); Mean Corp Hgb Conc 31.7 g/dL (32-36); Mean Corpuscular Hgb 28.9 pg (27.0-32.0); Mean Corpuscular Volume 91.3 fL (81-99); Mean Platelet Vol. 9.8 fl (6.2-12.0); Platelet Count 347 K/mm3 (150-450); RBC Distribution Width CV 14.5 % (11.6-14.6); RBC Distribution Width SD 48.1 fl (35.1-43.9); Red Blood Count 4.94 M/mm3 (4.2-5.4); White Blood Count 8.8 K/mm3 (4.4-11.0)
[2021-05-15 09:22] LABS: ALB/GLOB Ratio 0.6 RATIO (0.9-2.4); AST(SGOT) 27 U/L (15-37); Alanine Aminotransfer ALT/SGPT 25 U/L (13-56); Albumin, Serum 3.2 g/dL (3.2-5.0); Alkaline Phosphatase 124 U/L (45-117); Anion Gap 5 (5-15); BUN 12 mg/dL (7-18); BUN/Creat Ratio 13.4 RATIO (10-20); Calcium,Total 9.1 mg/dL (8.5-10.1); Chloride 104 mmol/L (98-107); EST Glomerular Filtration Rate 66 mL/min (>60); Est Glom Filt Rate - Afr Amer 80 mL/min (>60); Glucose 141 mg/dL (74-106); Protein, Total 8.2 g/dL (6.4-8.2); Sodium Level 138 mmol/L (136-145)
== END 2021-05-15 18:00 | disposition home or self-care (01) ==
LOC: HHLAB 08:52
PROVIDERS: PCP Family Medicine; Referring Provider Orthopaedic Surgery Orthopaedic Surgery of the Spine
DX: Z45.2 Encounter for adjustment and management of vascular access device (principal)
CPT/HCPCS: 80053; 85027; 85652

== ENCOUNTER 2021-05-23 14:03 | Outpatient (RCR) | payer MEDICARE, OTHER, SELFPAY ==
[2021-05-16 19:29] VITALS: BMI 44.4
[2021-05-23 14:20] LABS: Hemoglobin 14.3 g/dL (12.0-15.0); Mean Corp Hgb Conc 32.5 g/dL (32-36); Mean Corpuscular Hgb 29.4 pg (27.0-32.0); Mean Corpuscular Volume 90.3 fL (81-99); Mean Platelet Vol. 9.7 fl (6.2-12.0); Platelet Count 343 K/mm3 (150-450); RBC Distribution Width CV 14.6 % (11.6-14.6); RBC Distribution Width SD 47.6 fl (35.1-43.9); Red Blood Count 4.87 M/mm3 (4.2-5.4); White Blood Count 10.6 K/mm3 (4.4-11.0)
[2021-05-23 14:28] LABS: Erythrocyte Sedimentation Rate 53 mm/hr (0-30)
[2021-05-23 14:48] LABS: ALB/GLOB Ratio 0.7 RATIO (0.9-2.4); AST(SGOT) 24 U/L (15-37); Alanine Aminotransfer ALT/SGPT 32 U/L (13-56); Albumin, Serum 3.2 g/dL (3.2-5.0); Alkaline Phosphatase 117 U/L (45-117); Anion Gap 5 (5-15); BUN 10 mg/dL (7-18); BUN/Creat Ratio 13.2 RATIO (10-20); Calcium,Total 9.5 mg/dL (8.5-10.1); Chloride 104 mmol/L (98-107); Creatinine, Serum 0.76 mg/dL (0.55-1.02); EST Glomerular Filtration Rate 80 mL/min (>60); Est Glom Filt Rate - Afr Amer 96 mL/min (>60); Globulin 4.9 g/dL (2.2-4.2); Glucose 100 mg/dL (74-106); Protein, Total 8.1 g/dL (6.4-8.2); Sodium Level 138 mmol/L (136-145)
== END 2021-05-23 18:00 | disposition home or self-care (01) ==
LOC: HHLAB 14:03
PROVIDERS: PCP Family Medicine; Referring Provider Orthopaedic Surgery Orthopaedic Surgery of the Spine
DX: Z45.2 Encounter for adjustment and management of vascular access device (principal)
CPT/HCPCS: 80053; 85027; 85652

== ENCOUNTER 2021-06-13 12:24 | Outpatient (RCR) | payer MEDICARE, OTHER, SELFPAY ==
[2021-05-30 15:09] LABS: Erythrocyte Sedimentation Rate 28 mm/hr (0-30)
[2021-05-30 15:11] LABS: Absolute Lymphocyte Count 2.74 X10^3/uL (0.83-4.51); Absolute Neutrophil Count 4.2 X10^3/uL (2.0-7.7); Basophil# 0.21 X10^3/uL; Basophil% 2.5 % (0-1); Eosinophil# 0.33 X10^3/uL; Hemoglobin 14.6 g/dL (12.0-15.0); Lymphocyte # 2.74 X10^3/ul (0.83-4.51); Lymphocyte % 32.8 % (19-41); Mean Corp Hgb Conc 31.7 g/dL (32-36); Mean Corpuscular Hgb 29.2 pg (27.0-32.0); Mean Platelet Vol. 9.8 fl (6.2-12.0); Monocyte% 9.6 % (0-10); NRBC Flagged by Analyzer 0 % (0-5); Neutrophil # 4.21 X10^3/uL (2.7-7.7); Neutrophil % 50.4 % (47-70); Platelet Count 305 K/mm3 (150-450); RBC Distribution Width CV 14.7 % (11.6-14.6); RBC Distribution Width SD 49.1 fl (35.1-43.9); White Blood Count 8.4 K/mm3 (4.4-11.0)
[2021-05-30 15:24] LABS: ALB/GLOB Ratio 0.6 RATIO (0.9-2.4); AST(SGOT) 36 U/L (15-37); Alanine Aminotransfer ALT/SGPT 47 U/L (13-56); Albumin, Serum 3.2 g/dL (3.2-5.0); Alkaline Phosphatase 112 U/L (45-117); Anion Gap 8 (5-15); BUN 12 mg/dL (7-18); BUN/Creat Ratio 12.3 RATIO (10-20); Calcium,Total 9.5 mg/dL (8.5-10.1); Chloride 102 mmol/L (98-107); Creatinine, Serum 0.98 mg/dL (0.55-1.02); EST Glomerular Filtration Rate 60 mL/min (>60); Est Glom Filt Rate - Afr Amer 72 mL/min (>60); Glucose 197 mg/dL (74-106); Potassium 4.6 mmol/L (3.5-5.1); Protein, Total 8.2 g/dL (6.4-8.2); Sodium Level 138 mmol/L (136-145)
[2021-06-06 15:15] LABS: Hematocrit 46.1 % (37-47); Hemoglobin 14.6 g/dL (12.0-15.0); Mean Corp Hgb Conc 31.7 g/dL (32-36); Mean Corpuscular Volume 91.7 fL (81-99); Mean Platelet Vol. 9.9 fl (6.2-12.0); Platelet Count 349 K/mm3 (150-450); RBC Distribution Width CV 15.2 % (11.6-14.6); RBC Distribution Width SD 50.3 fl (35.1-43.9); Red Blood Count 5.03 M/mm3 (4.2-5.4); White Blood Count 9.1 K/mm3 (4.4-11.0)
[2021-06-06 15:29] LABS: ALB/GLOB Ratio 0.7 RATIO (0.9-2.4); AST(SGOT) 33 U/L (15-37); Alanine Aminotransfer ALT/SGPT 46 U/L (13-56); Albumin, Serum 3.3 g/dL (3.2-5.0); Alkaline Phosphatase 97 U/L (45-117); Anion Gap 6 (5-15); BUN 14 mg/dL (7-18); BUN/Creat Ratio 14.4 RATIO (10-20); CRP 7.54 mg/L (0.0-3.0); Calcium,Total 9.2 mg/dL (8.5-10.1); Chloride 105 mmol/L (98-107); Creatinine, Serum 0.97 mg/dL (0.55-1.02); EST Glomerular Filtration Rate 60 mL/min (>60); Est Glom Filt Rate - Afr Amer 73 mL/min (>60); Globulin 4.7 g/dL (2.2-4.2); Glucose 142 mg/dL (74-106); Sodium Level 138 mmol/L (136-145)
[2021-06-06 15:30] LABS: Erythrocyte Sedimentation Rate 17 mm/hr (0-30)
[2021-06-13 15:24] LABS: Hematocrit 46.3 % (37-47); Hemoglobin 14.6 g/dL (12.0-15.0); Mean Corp Hgb Conc 31.5 g/dL (32-36); Mean Corpuscular Hgb 29.1 pg (27.0-32.0); Mean Corpuscular Volume 92.2 fL (81-99); Mean Platelet Vol. 10.5 fl (6.2-12.0); Platelet Count 323 K/mm3 (150-450); RBC Distribution Width CV 15.5 % (11.6-14.6); RBC Distribution Width SD 51.4 fl (35.1-43.9); Red Blood Count 5.02 M/mm3 (4.2-5.4); White Blood Count 8.7 K/mm3 (4.4-11.0)
[2021-06-13 15:43] LABS: Erythrocyte Sedimentation Rate 43 mm/hr (0-30)
[2021-06-13 15:44] LABS: ALB/GLOB Ratio 0.7 RATIO (0.9-2.4); AST(SGOT) 28 U/L (15-37); Alanine Aminotransfer ALT/SGPT 43 U/L (13-56); Albumin, Serum 3.3 g/dL (3.2-5.0); Alkaline Phosphatase 86 U/L (45-117); Anion Gap 8 (5-15); BUN 8 mg/dL (7-18); BUN/Creat Ratio 7.9 RATIO (10-20); CRP 6.43 mg/L (0.0-3.0); Calcium,Total 9.3 mg/dL (8.5-10.1); Chloride 103 mmol/L (98-107); Creatinine, Serum 1.01 mg/dL (0.55-1.02); EST Glomerular Filtration Rate 57 mL/min (>60); Est Glom Filt Rate - Afr Amer 69 mL/min (>60); Globulin 4.6 g/dL (2.2-4.2); Glucose 192 mg/dL (74-106); Potassium 4.1 mmol/L (3.5-5.1); Protein, Total 7.9 g/dL (6.4-8.2); Sodium Level 139 mmol/L (136-145)
== END 2021-06-13 18:00 | disposition home or self-care (01) ==
LOC: MTLAB 12:24
PROVIDERS: PCP Family Medicine
DX: T81.31XD Disruption of external operation (surgical) wound, not elsewhere classified, subsequent encounter (principal); I33.0 Acute and subacute infective endocarditis; R78.81 Bacteremia
CPT/HCPCS: 36415; 80053; 85025; 85027; 85652; 86140

== ENCOUNTER → 2021-07-21 14:40 | Outpatient (CLI) | payer MEDICARE, OTHER, SELFPAY ==
[2021-07-21 17:52] LABS: Absolute Lymphocyte Count 3.35 X10^3/uL (0.83-4.51); Absolute Neutrophil Count 4.5 X10^3/uL (2.0-7.7); Basophil# 0.27 X10^3/uL; Eosinophil# 0.28 X10^3/uL; Eosinophils% 3.1 % (0-5); Hematocrit 46.9 % (37-47); Hemoglobin 14.8 g/dL (12.0-15.0); Lymphocyte # 3.35 X10^3/ul (0.83-4.51); Lymphocyte % 36.6 % (19-41); Mean Corp Hgb Conc 31.6 g/dL (32-36); Mean Corpuscular Hgb 29.4 pg (27.0-32.0); Mean Corpuscular Volume 93.2 fL (81-99); Mean Platelet Vol. 10.3 fl (6.2-12.0); Monocyte# 0.73 X10^3/uL; NRBC Flagged by Analyzer 0 % (0-5); Neutrophil # 4.47 X10^3/uL (2.7-7.7); Neutrophil % 48.8 % (47-70); Platelet Count 305 K/mm3 (150-450); RBC Distribution Width SD 54.6 fl (35.1-43.9); Red Blood Count 5.03 M/mm3 (4.2-5.4); White Blood Count 9.2 K/mm3 (4.4-11.0)
[2021-07-21 18:23] LABS: ALB/GLOB Ratio 0.7 RATIO (0.9-2.4); AST(SGOT) 40 U/L (15-37); Alanine Aminotransfer ALT/SGPT 43 U/L (13-56); Albumin, Serum 3.2 g/dL (3.2-5.0); Alkaline Phosphatase 84 U/L (45-117); Anion Gap 6 (5-15); BUN 10 mg/dL (7-18); BUN/Creat Ratio 9.4 RATIO (10-20); CRP 7.16 mg/L (0.0-3.0); Calcium,Total 9.1 mg/dL (8.5-10.1); Chloride 104 mmol/L (98-107); Creatinine, Serum 1.06 mg/dL (0.55-1.02); EST Glomerular Filtration Rate 54 mL/min (>60); Est Glom Filt Rate - Afr Amer 66 mL/min (>60); Globulin 4.5 g/dL (2.2-4.2); Glucose 120 mg/dL (74-106); Potassium 4.1 mmol/L (3.5-5.1); Protein, Total 7.7 g/dL (6.4-8.2); Sodium Level 139 mmol/L (136-145)
[2021-07-21 18:32] LABS: Erythrocyte Sedimentation Rate 18 mm/hr (0-30)
== END ==
PROVIDERS: PCP Family Medicine
DX: T81.31XA Disruption of external operation (surgical) wound, not elsewhere classified, initial encounter (principal)
CPT/HCPCS: 36415; 80053; 85025; 85652; 86140

== ENCOUNTER → 2021-07-30 | Outpatient (CLI) | payer MEDICARE, OTHER, SELFPAY ==
[2021-07-30 16:42] LABS: Mucous, Urine 0 SEEN /hpf (<or=2+)
[2021-07-30 16:46] LABS: Color, Urine Yellow (Yellow); Glucose, Dipstick Normal (Normal); Ketone-Dipstick Negative (Negative); Leukocyte Esterase-Dipstick 500 /ul (Negative); Nitrite-Dipstick Negative (Negative); Occult Blood-Urine 150 /ul (Negative); Protein-Dipstick 30 mg/dl (Negative); Specific Gravity, Urine 1.015 (1.002-1.030); Urine Bilirubin Dipstick Negative (Negative); Urine Clarity Cloudy (Clear); Urine Urobilinogen Normal (Normal)
[2021-07-30 16:56] LABS: White Blood Cells 5-10 SEEN /hpf (0-5)
[2021-07-30 16:57] LABS: Red Blood Cells-Urine 0-5 SEEN /hpf (0-5); Squamous Epithelial Cells - UA 0-5 SEEN /hpf (5-10)
[2021-07-30 17:04] LABS: Bacteria 4+ /hpf (None Seen); Triple Phosphate Crystals Ur 1+ /hpf (<or=1+)
== END | disposition home or self-care (01) ==
PROVIDERS: PCP Family Medicine; Referring Provider Nurse Practitioner Family; Visit Provider Nurse Practitioner Family
DX: N39.0 Urinary tract infection, site not specified (principal)
CPT/HCPCS: 81001; 87077; 87086; 87088; 87186

== ENCOUNTER → 2022-01-22 | Outpatient (CLI) | payer MEDICARE, OTHER, SELFPAY ==
[2022-01-22 15:51] LABS: Bacteria 0 SEEN /hpf (None Seen); Mucous, Urine 0 SEEN /hpf (<or=2+); Red Blood Cells-Urine 0 SEEN /hpf (0-5); Squamous Epithelial Cells - UA 0 SEEN /hpf (5-10)
[2022-01-22 16:06] LABS: Color, Urine SEE COMMENT BELOW (Yellow); Glucose, Dipstick Normal (Normal); Ketone-Dipstick Negative (Negative); Leukocyte Esterase-Dipstick 500 /ul (Negative); Nitrite-Dipstick Positive (Negative); Occult Blood-Urine 150 /ul (Negative); Protein-Dipstick 100 mg/dl (Negative); Urine Bilirubin Dipstick 3 mg/dL (Negative); Urine Clarity Cloudy (Clear); Urine Urobilinogen 8 mg/dl (Normal)
[2022-01-22 16:12] LABS: White Blood Cells >100 SEEN /hpf (0-5)
== END | disposition home or self-care (01) ==
LOC: LABSPEC 15:38
PROVIDERS: PCP Family Medicine; Referring Provider Physician Assistant Surgical; Visit Provider Physician Assistant Surgical
DX: N30.90 Cystitis, unspecified without hematuria (principal); M54.9 Dorsalgia, unspecified
CPT/HCPCS: 81001; 87077; 87086; 87088; 87186

== ENCOUNTER → 2022-06-11 | Outpatient (CLI) | payer MEDICARE, OTHER, SELFPAY ==
--- NOTE | 2022-06-11 13:44 | ECHOD_ITS ---
Reason For Study: HX BACTERIAL ENDOCARDITIS Procedure This was a 2D Doppler, Color Flow transthoracic echocardiogram. Exam performed in department. Left Ventricle Normal LV size. Left ventricular systolic function is normal. The estimated ejection fraction is 55 %. No regional wall motion abnormalities noted. Right Ventricle Normal RV size. Normal systolic function. Atria Normal left atrium. Normal right atrium. Mitral Valve Normal mitral valve. Tricuspid Valve Normal tricuspid valve. Aortic Valve Normal aortic valve. Pulmonic Valve Normal pulmonic valve. Great Vessels Normal aortic root. The pulmonary artery is normal size. Normal inferior vena cava. Pericardium/Pleural No pericardial effusion. MMode/2D Measurements & Calculations LVIDd: 4.7 cm IVSd: 1.3 cm Ao root diam: 2.9 cm LVIDs: 3.1 cm LVPWd: 1.0 cm RVDd: 3.4 cm FS: 32.4 % LAV(MOD-bp): 40.6 ml LVAd ap4: 23.1 cm2 LVAd ap2: 18.0 cm2 LAV(MOD-bp) Indexed: 17.8 ml/m2 LVLd ap4: 7.5 cm LVLd ap2: 6.3 cm LAV(MOD-sp2): 42.7 ml EDV(MOD-sp4): 64.3 ml EDV(MOD-sp2): 44.1 ml LAV(MOD-sp4): 33.8 ml EDV(sp4-el): 60.4 ml EDV(sp2-el): 43.5 ml LVAs ap4: 10.3 cm2 LVAs ap2: 9.8 cm2 LVLs ap4: 5.4 cm LVLs ap2: 5.1 cm ESV(MOD-sp4): 17.5 ml ESV(MOD-sp2): 16.3 ml ESV(sp4-el): 17.0 ml ESV(sp2-el): 16.0 ml EF(MOD-sp4): 72.7 % EF(MOD-sp2): 62.9 % EF(sp4-el): 71.9 % SV(MOD-sp4): 46.8 ml SV(MOD-sp2): 27.7 ml SV(sp4-el): 43.5 ml LA dimension(2D): 4.2 cm LA A4 area: 14.6 cm2 Time Measurements MV dec time: 0.22 sec Doppler Measurements & Calculations MV E max nimesh: 68.4 cm/sec Lat Peak E' Nimesh: 7.3 cm/sec Med Peak E' Nimesh: 11.2 cm/sec MV A max nimesh: 77.4 cm/sec E/E' lat: 9.3 E/E' med: 6.1 MV E/A: 0.88 Ao V2 max: 122.4 cm/sec LV V1 max: 89.7 cm/sec PA V2 max: 116.3 cm/sec Ao max P.0 mmHg LV V1 max P.2 mmHg ECHO/Echo Complete Interpretation Summary Normal LV size. Left ventricular systolic function is normal. The estimated ejection fraction is 55 %. There is no evidence of a mass or vegetation. This does not rule out endocardit is. Ordering Physician: Nancy Ortiz Referring Physician: Madeline Choe Performed By: Kristal Alonzo, SEBAS, RVT
== END | disposition home or self-care (01) ==
PROVIDERS: PCP Family Medicine; Referring Provider Family Medicine; Visit Provider Family Medicine
DX: I38 Endocarditis, valve unspecified (principal)
CPT/HCPCS: 93306

== ENCOUNTER → 2023-07-25 | Outpatient (CLI) | payer MEDICARE, OTHER, SELFPAY ==
[2023-07-25 17:36] LABS: Absolute Lymphocyte Count 2.88 X10^3/uL (0.83-4.51); Absolute Neutrophil Count 4.2 X10^3/uL (2.0-7.7); Basophil# 0.21 X10^3/uL; Basophil% 2.5 % (0-1); Eosinophil# 0.33 X10^3/uL; Eosinophils% 3.9 % (0-5); Lymphocyte # 2.88 X10^3/ul (0.83-4.51); Lymphocyte % 34.4 % (19-41); Mean Corp Hgb Conc 30.8 g/dL (32-36); Mean Corpuscular Hgb 29.6 pg (27.0-32.0); Mean Corpuscular Volume 96.3 fL (81-99); Mean Platelet Vol. 10.3 fl (6.2-12.0); Monocyte# 0.71 X10^3/uL; Monocyte% 8.5 % (0-10); NRBC Flagged by Analyzer 0 % (0-5); Neutrophil # 4.19 X10^3/uL (2.7-7.7); Platelet Count 297 K/mm3 (150-450); RBC Distribution Width CV 14.5 % (11.6-14.6); RBC Distribution Width SD 51.2 fl (35.1-43.9); White Blood Count 8.4 K/mm3 (4.4-11.0)
[2023-07-25 17:52] LABS: Vitamin B12 404 pg/mL (211-911); Vitamin D,25 Hydroxy 113.1 ng/mL
[2023-07-25 18:12] LABS: ALB/GLOB Ratio 0.8 RATIO (0.9-2.4); AST(SGOT) 21 U/L (15-37); Alanine Aminotransfer ALT/SGPT 26 U/L (13-56); Albumin, Serum 3.4 g/dL (3.2-5.0); Alkaline Phosphatase 69 U/L (45-117); Anion Gap 9 (5-15); BUN 17 mg/dL (7-18); BUN/Creat Ratio 15.7 RATIO (10-20); Calcium,Total 8.8 mg/dL (8.5-10.1); Chloride 103 mmol/L (98-107); Cholesterol 154 mg/dL (200); Creatinine, Serum 1.08 mg/dL (0.55-1.02); EST Glomerular Filtration Rate 53 mL/min (>60); Est Glom Filt Rate - Afr Amer 64 mL/min (>60); Free T3 2.6 pg/mL (2.18-3.98); Glucose 194 mg/dL (74-106); High Density Lipoprotein 44 mg/dL; Potassium 4.3 mmol/L (3.5-5.1); Protein, Total 7.4 g/dL (6.4-8.2); Sodium Level 138 mmol/L (136-145); T4 Free Direct 1.44 ng/dL (0.76-1.46); Thyroid Stim Hormone (TSH) 0.06 uIU/mL (0.358-3.74); Triglycerides 257 mg/dL; Very Low Density Lipoprotein 51 mg/dL (5-40)
== END | disposition home or self-care (01) ==
LOC: BFHLAB 13:59
PROVIDERS: PCP Family Medicine; Visit Provider Family Medicine
DX: E03.9 Hypothyroidism, unspecified (principal); E11.9 Type 2 diabetes mellitus without complications; E55.9 Vitamin D deficiency, unspecified; E78.5 Hyperlipidemia, unspecified; E53.8 Deficiency of other specified B group vitamins
CPT/HCPCS: 36415; 80053; 80061; 82306; 82607; 84439; 84443; 84481; 85025

== ENCOUNTER → 2023-09-18 | Outpatient (CLI) | payer MEDICARE, OTHER, SELFPAY ==
[2023-09-18 11:16] LABS: Mucous, Urine 0 SEEN /hpf (<or=2+); Red Blood Cells-Urine 0 SEEN /hpf (0-5); Squamous Epithelial Cells - UA 0 SEEN /hpf (5-10)
[2023-09-18 11:26] LABS: Color, Urine Yellow (Yellow); Glucose, Dipstick Normal (Normal); Ketone-Dipstick Negative (Negative); Leukocyte Esterase-Dipstick 500 /ul (Negative); Nitrite-Dipstick Positive (Negative); Occult Blood-Urine 25 /ul (Negative); Protein-Dipstick 15 mg/dl (Negative); Specific Gravity, Urine 1.015 (1.002-1.030); Urine Bilirubin Dipstick Negative (Negative); Urine Clarity Sl. Cloudy (Clear); Urine Urobilinogen Normal (Normal)
[2023-09-18 11:38] LABS: Bacteria 2+ /hpf (None Seen); White Blood Cells >100 SEEN /hpf (0-5)
--- OUTSIDE RECORDS SUMMARY | 2023-09-18 12:33 | XMS RPT_ITS | CCD ---
Author Name Unknown Address [facility] [address] [place] [address] Organization [facility] Care Team Providers Care Multiple Launch Rocket System Crewmember Name Role Phone Jamee Diaz Unavailable Gricelda RN, Radha Francis Unavailable Unavailable Gricelda RN, Radha Francis Unavailable Unavailable Gricelda RN, Radha Francis Unavailable Unavailable ISELA Lomas, Fay Forman Unavailable Unavailmiguel Lomas RN, Fay Forman Unavailable UnavailNaomie Sun Unavailable Keo Velasco Unavailable Unavailable Allergies Allergy Classification Reported Allergen(s) Allergy Type Date of Onset Reaction(s) Facility (8 sources) gabapentin drug allergy 02-21-20 16 Hallucinations [facility] Work Phone: (8 sources) metroNIDAZOLE drug allergy 02-21-20 16 Anaphylaxis [facility] Work Phone: [phone] (8 sources) morphine drug allergy 02-21-20 16 Nausea, confusion [facility] Work Phone: [phone] (8 sources) pregabalin drug allergy 02-21-20 16 Hallucinations [facility] Work Phone: [phone] (8 sources) sulfamethoxazole / trimethoprim drug allergy 02-21-20 16 Rash [facility] Work Phone: [phone] (5 sources) KETACONAZOLE SHAMPOO drug allergy 02-14-20 17 Eyes and neck swelling [facility] Work Phone: [phone] Medications Completed/Discontinued Medications Medication Drug Class(es) Dates Sig (Normalized) Sig (Original) VITAMIN B-12 1000 MCG/ML ORAL LIQD (CYANOCOBALAMIN) (6 sources) Start: 02-21-2016 take 1 mL by intramuscular injection every month VITAMIN B-12 1000 MCG/ML ORAL LIQD (CYANOCOBALAMIN) 1mL IM once a month Jeff Silva DO ALPRAZolam 0.5 mg oral tablet (8 sources) Benzodiazepine Start: 02-21-2016 take 1 tablet by mouth once daily XANAX 0.5 MG TABS One tablet by mouth daily ALPRAZOLAM [id number] Jeff Silva DO amLODIPine 5 mg oral tablet (16 sources) Dihydropyridine Calcium Channel Soheila Start: 02-21-2016 take 1 tablet by mouth once daily AMLODIPINE BESYLATE 5 MG TABS One tablet by mouth daily AMLODIPINE BESYLATE [id number] Jeff Silva DO Problems Active Problems Problem Classification Problem Date Documented Date Episodic/Chronic Anxiety disorders (8 sources) Generalized anxiety disorder; Translations: [Generalized anxiety disorder] Onset: 02-21-2016 02-21-2016 Chronic Cardiac dysrhythmias (8 sources) Ventricular premature depolarization; Translations: [Ventricular premature depolarization] Onset: 02-11-2017 02-11-2017 Chronic Diabetes mellitus without complication (8 sources) Type 2 diabetes mellitus; Translations: [Type 2 diabetes mellitus without complications] Onset: 02-21-2016 02-21-2016 Chronic Disorders of lipid metabolism (8 sources) Hyperlipidemia; Translations: [Hyperlipidemia, unspecified] Onset: 02-21-2016 02-21-2016 Chronic Essential hypertension (8 sources) Hypertensive disorder; Translations: [Essential (primary) hypertension] Onset: 02-21-2016 02-21-2016 Chronic Leukemias (8 sources) Chronic lymphoid leukemia, disease; Translations: [Chronic lymphocytic leukemia of B-cell type not having achieved remission] Onset: 02-21-2016 02-21-2016 Chronic Nutritional deficiencies (8 sources) Vitamin D deficiency; Translations: [Vitamin D deficiency, unspecified] Onset: 02-21-2016 02-21-2016 Chronic Osteoarthritis (8 sources) Degenerative joint disease involving multiple joints; Translations: [Polyosteoarthritis, unspecified] Onset: 02-21-2016 02-21-2016 Chronic Other liver diseases (8 sources) Steatosis of liver; Translations: [Fatty (change of) liver, not elsewhere classified] Onset: 02-21-2016 02-21-2016 Chronic Spondylosis; intervertebral disc disorders; other back problems (8 sources) Degeneration of lumbar intervertebral disc; Translations: [Other intervertebral disc degeneration, lumbar region] Onset: 02-21-2016 02-21-2016 Chronic Thyroid disorders (8 sources) Hypothyroidism; Translations: [Hypothyroidism, unspecified] Onset: 02-21-2016 02-21-2016 Chronic Unclassified (8 sources) Obstructive sleep apnea syndrome; Translations: [Obstructive sleep apnea (adult) (pediatric)] Onset: 02-21-2016 02-21-2016 Chronic Past or Other Problems Problem Classification Problem Date Documented Da te Episodic/Chronic Cardiac dysrhythmias (8 sources) Palpitations; Translations: [Palpitations] Onset: 02-11-2017 02-11-2017 Episodic Deficiency and other anemia (8 sources) Pernicious anemia; Translations: [Vitamin B12 deficiency anemia due to intrinsic factor deficiency] Onset: 02-21-2016 02-21-2016 Episodic Malaise and fatigue (5 sources) Malaise and fatigue; Translations: [Other fatigue] Onset: 02-13-2017 02-13-2017 Episodic Other circulatory disease (8 sources) H/O: pulmonary embolus; Translations: [Personal history of pulmonary embolism] Onset: 02-21-2016 02-21-2016 Episodic Other upper respiratory infections (16 sources) Acute sinusitis; Translations: [Acute sinusitis, unspecified] Onset: 02-21-2016 Resolved: 03-27-2016 03-13-2016 Episodic Spondylosis; intervertebral disc disorders; other back problems (8 sources) Spinal stenosis of lumbar region; Translations: [Spinal stenosis, lumbar region] Onset: 02-21-2016 02-21-2016 Episodic Unclassified (8 sources) Chronic pain syndrome; Translations: [Chronic pain syndrome] Onset: 02-21-2016 02-21-2016 Episodic Unclassified (8 sources) Screening for malignant neoplasm of breast ; Translations: [Other specified health status] Onset: 03-13-2016 Resolved: 03-18-2016 03-13-2016 Urinary tract infections (8 sources) Recurrent urinary tract infection; Translations: [Urinary tract infection, site not specified] Onset: 02-21-2016 02-21-2016 Episodic Varicose veins of lower extremity (8 sources) Varicose veins of lower extremity; Translations: [Asymptomatic varicose veins of unspecified lower extremity] Onset: 03-13-2016 03-13-2016 Episodic Results Test Name Value Interpretation Reference Range Facil ity Vital Signs Date Time Vital Sign Value Performing Clinician Rasheed treviño 02-13-2017 15:50-0400 BMI (Body Mass Index) 33.14 kg/m2 [facility] Work Phone: 02-13-2017 15:50-0400 BP Diastolic 80 mm[Hg] Radha Madison RN [facility] Work Phone: 02-13-2017 15:50-0400 BP Systolic 140 mm[Hg] Radha Madison RN [facility] Work Phone: 02-13-2017 15:50-0400 Height 172.72 cm [facility] Work Phone: 02-13-2017 15:50-0400 Pulse (Heart Rate) 84 /min Radha Madison RN [facility] Work Phone: 02-13-2017 15:50-0400 Respiratory Rate 20 /min Radha Madison RN [facility] Work Phone: 02-13-2017 15:50-0400 Weight 98.88 kg Radha Madison RN [facility] Work Phone: 03-13-2016 12:38-0400 BMI (Body Mass Index) 33.88 kg/m2 I[facility] Work Phone: 03-13-2016 12:38-0400 Body Temperature 99.1 [degF] [facility] Work Phone: 03-13-2016 12:38-0400 BP Diastolic 78 mm[Hg] ISELA [facility] Work Phone: 03-13-2016 12:38-0400 BP Systolic 148 mm[Hg] ISELA [facility] Work Phone: 03-13-2016 12:38-0400 BSA (Body Surface Area) 2.12 m2 SIELA [facility] Work Phone: 03-13-2016 12:38-0400 Pulse (Heart Rate) 105 /min [facility] Work Phone: 03-13-2016 12:38-0400 Pulse Oximetry 96 % ISELA [facility] Work Phone: 03-13-2016 12:38-0400 Respiratory Rate 16 /min ISLE[facility] Work Phone: 03-13-2016 12:38-0400 Weight 99.61 kg ISELA [facility] Work Phone: 02-21-2016 14:16-0400 Height 171.45 cm ISELA [facility] Work Phone: Procedures Date Procedure Procedure Detail Performing Clinician Start: 02-13-2017 End: 02-13-2017 Follow Up Appt 6 months Dickson Valero Start: 02-13-2017 End: 02-13-2017 MMM Meng Espino MD Start: 03-05-2016 End: 03-05-2016 Urine culture, bacteria Jeff Silva [employer] Work Phone: Start: 02-21-2016 End: 03-05-2016 *CBC with Differential Jeff Terry O Work Phone: Start: 02-21-2016 End: 03-05-2016 *CMP Complete Metabolic Panel Jeff Silva DO Work Phone: Start: 02-21-2016 End: 03-05-2016 *Microalbumin, Creatine Ratio, rand urine Jeff Silva DO Work Phone: Start: 02-21-2016 End: 03-05-2016 25-Hydroxyvitamin D2+25-Hydroxyvitamin D3 [Mass/volume] in Serum or Plasma Jeff Silva DO Work Phone: Start: 02-21-2016 End: 03-05-2016 Cobalamins (Vitamin B12) Jeff Silva DO Work Phone: Start: 02-21-2016 End: 03-05-2016 HbA1c Jeff Francis [employer] Work Phone: Start: 02-21-2016 End: 03-05-2016 Lipid panel [AGGREGATE] Jeff Francis [employer] Work Phone: Start: 02-21-2016 End: 03-05-2016 Thyroid stimulating hormone (TSH) Jeff Francis [employer] Work Phone: Start: 02-21-2016 End: 03-05-2016 Urinalysis complete panel - Urine Jeff Francis [employer] Phone: Plan of Treatment Date Care Activity Detail Author Start: 08-26-2017 End: 08-26-2017 Appointment Appointment [facility] Work Phone: Start: 08-26-2017 End: 08-26-2017 Appointment Appointment [facility] Work Phone: Start: 02-13-2017 End: 02-13-2017 Appointment Appointment [facility] Work Phone: Start: 02-13-2017 End: 02-13-2017 *BMP *BMP [facility] Work Phone: Start: 02-13-2017 End: 02-13-2017 CBC W Auto Differential panel - Blood *CBC without Diff [facility] Work Phone: Start: 02-13-2017 End: 02-13-2017 Chest x-ray X-Ray, Chest, PA & Lateral [facility] Work Phone: Start: 02-13-2017 End: 02-13-2017 Follow Up Appt 6 months Follow Up Appt 6 months [facility] Work Phone: Start: 02-13-2017 End: 02-15-2017 Left Heart Cath Left Heart Cath [facility] Work Phone: Start: 02-13-2017 End: 02-13-2017 MMM MMM [facility] Work Phone: Start: 06-04-2016 End: 03-13-2016 *CBC with Differential *CBC with Differential [employer] Work Phone: Start: 06-04-2016 End: 03-13-2016 HbA1c *HgA1C [employer] Work Phone: Start: 06-04-2016 End: 03-13-2016 Lipid panel [AGGREGATE] *Lipid Profile [employer] [facility] Work Phone: Start: 03-13-2016 End: 03-13-2016 Mammogram, screening Mammogram, Screening, both breasts [employer] Work Phone: Start: 03-05-2016 End: 03-05-2016 Urine culture, bacteria *CUUR - Culture, Urine ([place] Count) [employer] Work Phone: Start: 02-21-2016 End: 03-05-2016 *CBC with Differential *CBC with Differential [employer] Work Phone: Start: 02-21-2016 End: 03-05-2016 *CMP Complete Metabolic Panel *CMP Complete Metabolic Panel [employer] Work Phone: Start: 02-21-2016 End: 03-05-2016 *Microalbumin, Creatine Ratio, rand urine *Microalbumin, Creatine Ratio, rand urine [employer] Work Phone: Start: 02-21-2016 End: 03-05-2016 25-Hydroxyvitamin D2+25-Hydroxyvitamin D3 [Mass/volume] in Serum or Plasma *Vitamin D (Calciferol) [employer] Work Phone: Start: 02-21-2016 End: 03-05-2016 Cobalamins (Vitamin B12) *B-12 [employer] [facility] Work Phone: Start: 02-21-2016 End: 03-05-2016 HbA1c *HgA1C [employer] Work Phone: Start: 02-21-2016 End: 03-05-2016 Lipid panel [AGGREGATE] *Lipid Profile [facility] Work Phone: Start: 02-21-2016 End: 03-05-2016 Thyroid stimulating hormone (TSH) *TSH [employer] Work Phone: Start: 02-21-2016 End: 03-05-2016 Urinalysis complete panel - Urine *UAC- Urinalysis, Complete w/ Micro [facility] Work Phone: Clinical Notes 03-23-2021 to 05-16-2021 Note Date & Type Note Facility 05-16-2021 Note . MICRO - Microbiology PROCEDURE: MRSA PCR [*1] SOURCE: Nares BODY SITE: COLLECTED DATE/TIME: 05/15/2021 11:13 EDT RECEIVED DATE/TIME: 05/15/2021 11:37 EDT START DATE/TIME: 05/15/2021 11:37 EDT FREE TEXT SOURCE: FINAL REPORTS Final Report [] Verified Date/Time/Personnel: 05/15/2021 23:53 EDT MRSA NEGATIVE. MRSA DNA not detected by Real-Time Polymerase Chain Reaction (PCR). A negative result may be due to intermittent colonization. Colonization may vary depending on patient treatment, patient status or exposure to high risk environments. As with all PCR based in vitro tests, extremely low levels of target below the limit of detection of the assay may be detected, but results may not be reproducible. Performing Locations *1: This test was performed at: [facility], [address] [place] [address], [address] [place] [address] ([place]) Summary Purpose Family History No Family History Records FoundNo Family History Records Found Advance Directives No Advanced Directives Records FoundNo Advanced Directives Records Found Additional Source Comments INFORMATION SOURCE (unrecogn ized section and content) DATE CREATED AUTHOR AUTHOR'S ORGANIZ ATION 12/07/2021 [facility] [place] ([place] FOR RECORDS PERTAINING TO PATIENTS WHO ARE OR HAVE BEEN ENROLLED IN A CHEMICAL DEPENDENCY/SUBSTANCEABUSE PROGRAM, SOME INFORMATION MAY BE OMITTED. This clinical summary was aggregated from multiple sources. Caution should be exercised in using it in the provision of clinical care. This summary normalizes information from multiple sources, and as a consequence, information in this document may materially change the coding, format and clinical context of patient data. In addition, data may be omitted in some cases. CLINICAL DECISIONS SHOULD BE BASED ON THE PRIMARY CLINICAL RECORDS. [employer] provides no warranty or guarantee of the accuracy or completeness of information in this document.
== END | disposition home or self-care (01) ==
LOC: LABSPEC 10:56
PROVIDERS: PCP Family Medicine; Referring Provider Physician Assistant; Visit Provider Physician Assistant
DX: R30.0 Dysuria (principal)
CPT/HCPCS: 81001; 87086; 87088; 87186

== ENCOUNTER → 2023-10-16 | Outpatient (CLI) | payer MEDICARE, OTHER, SELFPAY ==
--- NOTE | 2023-10-16 09:44 | ART_ITS ---
Reason For Study: PVD Procedure A bilateral lower extremity continuous wave Doppler with analog waveform analysis,segmental pressures,and ankle brachial indexes without exercise. Left Segmental Pressures Left brachial= 130mmHg. Left calf = 81mmHg. Left posterior tibial artery = 77mmHg. Left dorsalis pedis artery = 72mmHg. Left digit = 58 mmHg. The left posterior tibial artery waveforms are monophasic. The left dorsalis pedis waveforms are monophasic. Right Segmental Pressures Right brachial= 132mmHg. Right calf = 85mmHg. Right posterior tibial artery = 101mmHg. Right dorsalis pedis artery = 78mmHg. Right digit = 56 mmHg. The right posterior tibial artery waveforms are biphasic. The right dorsalis pedis waveforms are biphasic. Indices The right ankle brachial index by the posterior tibial artery is 0.77. The right ankle brachial index by the dorsalis pedis is 0.59. The right digital-brachial index is 0.42. The left ankle brachial index by the posterior tibial artery is 0.58. The left ankle brachial index by the dorsalis pedis is 0.55. The left digital-brachial index is 0.44. VL/Lower Ext Art Exam w/o Exercis Interpretation Summary Right AARON 0.77, moderate arterial insufficiency. Doppler/PVR waveforms reveal a hlrw-qeser-xspkorpa femoral disease. Limited segmental pressure assessment. Left AARON 0.58, moderate arterial insufficiency. Doppler/PVR waveforms reveal ao ouv-xaptg-hnyfhpfk femoral disease. Limited segmental pressure assessment. Ordering Physician: Jeancarlos Cooney Referring Physician: JEANCARLOS COONEY DPM Performed By: Sergey Ovalle RVT
== END | disposition home or self-care (01) ==
LOC: CVS 09:43
PROVIDERS: PCP Family Medicine; Referring Provider Podiatrist; Visit Provider Podiatrist
DX: I73.9 Peripheral vascular disease, unspecified (principal)
CPT/HCPCS: 93923

== ENCOUNTER → 2023-10-31 | Outpatient (CLI) | payer MEDICARE, OTHER, SELFPAY ==
[2023-10-31 17:19] LABS: Creatinine, Serum 1.01 mg/dL (0.55-1.02); EST Glomerular Filtration Rate 57 mL/min (>60); Est Glom Filt Rate - Afr Amer 69 mL/min (>60)
== END | disposition home or self-care (01) ==
LOC: LAB 16:01
PROVIDERS: PCP Family Medicine; Referring Provider Surgery Trauma Surgery; Visit Provider Surgery Trauma Surgery
DX: I70.25 Atherosclerosis of native arteries of other extremities with ulceration (principal)
CPT/HCPCS: 36415; 82565

== ENCOUNTER → 2023-11-12 | Outpatient (CLI) | payer MEDICARE, OTHER, SELFPAY ==
[2023-11-12 18:29] LABS: Vitamin D,25 Hydroxy 76.4 ng/mL
[2023-11-12 18:43] LABS: Thyroid Stim Hormone (TSH) 0.16 uIU/mL (0.358-3.74)
--- OUTSIDE RECORDS SUMMARY | 2023-11-12 23:16 | XMS RPT_ITS | CCD ---
Author Name Unknown Address [address] [facility] [address] [place] [address] Organization [facility] Care Team Providers Care Data Analytics Architect Name Role Phone Jamee Diaz Unavailable Gricelda RN, Radha Francis Unavailable Unavailable Gricelda RN, Radha Francis Unavailable Unavailable Gricelda RN, Radha Francis Unavailable Unavailable ISELA Lomas, Fay Forman Unavailable Unavailmiguel Lomas RN, Fay Forman Unavailable UnavailNaomie Sun Unavailable Keo Velasco Unavailable Unavailable Allergies Allergy Classification Reported Allergen(s) Allergy Type Date of Onset Reaction(s) Facility (8 sources) gabapentin drug allergy 02-21-20 16 Hallucinations [facility] Work Phone: (8 sources) metroNIDAZOLE drug allergy 02-21-20 16 Anaphylaxis [facility] Work Phone: [phone] (8 sources) morphine drug allergy 02-21-20 16 Nausea, confusion [facility] Work Phone: [phone] (8 sources) pregabalin drug allergy 02-21-20 16 Hallucinations [facility] Work Phone: [phone] (8 sources) sulfamethoxazole / trimethoprim drug allergy 02-21-20 16 Rash [facility] Work Phone: [phone] (5 sources) KETACONAZOLE SHAMPOO drug allergy 02-14-20 17 Eyes and neck swelling [facility] Work Phone: [phone] Medications Completed/Discontinued Medications Medication Drug Class(es) Dates [...] TABS One tablet by mouth daily ALPRAZOLAM [id number] Jeff Silva DO amLODIPine 5 mg oral tablet (16 sources) Dihydropyridine Calcium Channel Soheila Start: 02-21-2016 take 1 tablet by mouth once daily AMLODIPINE BESYLATE 5 MG TABS One tablet by mouth daily AMLODIPINE BESYLATE [id number] Jeff Silva DO Problems Active Problems Problem [...] BP Diastolic 80 mm[Hg] Radha Madison RN [facility] Work Phone: 02-13-2017 15:50-0400 BP Systolic 140 mm[Hg] Radha Madison RN [facility] Work Phone: 02-13-2017 15:50-0400 Height 172.72 cm [facility] Work Phone: 02-13-2017 15:50-0400 Pulse (Heart Rate) 84 /min Radha Madison RN [facility] Work Phone: 02-13-2017 15:50-0400 Respiratory Rate 20 /min Radha Madison RN [facility] Work Phone: 02-13-2017 15:50-0400 Weight 98.88 kg Radha Madison RN [facility] Work Phone: 03-13-2016 12:38-0400 BMI (Body Mass Index) 33.88 kg/m2 [facility] Work Phone: 03-13-2016 12:38-0400 Body Temperature 99.1 [degF] [facility] Work Phone: 03-13-2016 12:38-0400 BP Diastolic 78 mm[Hg] ISELA [facility] Work Phone: 03-13-2016 12:38-0400 BP Systolic 148 mm[Hg] ISE[facility] Work Phone: 03-13-2016 12:38-0400 BSA (Body Surface Area) 2.12 m2 [facility] Work Phone: 03-13-2016 12:38-0400 Pulse (Heart Rate) 105 /min [facility] Work Phone: 03-13-2016 12:38-0400 Pulse Oximetry 96 % [facility] Work Phone: 03-13-2016 12:38-0400 Respiratory Rate 16 /min [facility] Work Phone: [...] End: 03-05-2016 Urine culture, bacteria Jeff Silva [employer] Work Phone: Start: 02-21-2016 End: 03-05-2016 [...] Start: 02-21-2016 End: 03-05-2016 HbA1c Jeff Francis [employer] Work Phone: Start: 02-21-2016 End: 03-05-2016 Lipid panel [AGGREGATE] Jeff Francis [employer] Work Phone: Start: 02-21-2016 End: 03-05-2016 Thyroid stimulating hormone (TSH) Jeff Francis [employer] Work Phone: Start: 02-21-2016 End: 03-05-2016 Urinalysis complete panel - Urine Jeff Francis [employer] Phone: Plan of Treatment Date Care Activity Detail Author Start: 08-26-2017 End: 08-26-2017 Appointment Appointment [facility] Work Phone: Start: 08-26-2017 End: 08-26-2017 Appointment Appointment [facility] Work Phone: Start: 02-13-2017 End: 02-13-2017 Appointment Appointment [facility] Work Phone: Start: 02-13-2017 End: 02-13-2017 *BMP *BMP [facility] Work Phone: Start: 02-13-2017 End: 02-13-2017 CBC W Auto Differential panel - Blood *CBC without Diff [facility] Work Phone: Start: 02-13-2017 End: 02-13-2017 Chest x-ray X-Ray, Chest, PA & Lateral [facility] Work Phone: Start: 02-13-2017 End: 02-13-2017 Follow Up Appt 6 months Follow Up Appt 6 months [facility] Work Phone: Start: 02-13-2017 End: 02-15-2017 Left Heart Cath Left Heart Cath [facility] Work Phone: Start: 02-13-2017 End: 02-13-2017 MMM MMM [facility] Work Phone: Start: 06-04-2016 End: 03-13-2016 *CBC with Differential *CBC with Differential [employer] Work Phone: Start: 06-04-2016 End: 03-13-2016 HbA1c *HgA1C [employer] Work Phone: Start: 06-04-2016 End: 03-13-2016 Lipid panel [AGGREGATE] *Lipid Profile [employer] [facility] Work Phone: Start: 03-13-2016 End: 03-13-2016 Mammogram, screening Mammogram, Screening, both breasts [employer] Work Phone: Start: 03-05-2016 End: 03-05-2016 Urine culture, bacteria *CUUR - Culture, Urine ([place] Count) [employer] Work Phone: Start: 02-21-2016 End: 03-05-2016 *CBC with Differential *CBC with Differential [employer] Work Phone: Start: 02-21-2016 End: 03-05-2016 *CMP Complete Metabolic Panel *CMP Complete Metabolic Panel [employer] Work Phone: Start: 02-21-2016 End: 03-05-2016 *Microalbumin, Creatine Ratio, rand urine *Microalbumin, Creatine Ratio, rand urine [employer] Work Phone: Start: 02-21-2016 End: 03-05-2016 25-Hydroxyvitamin D2+25-Hydroxyvitamin D3 [Mass/volume] in Serum or Plasma *Vitamin D (Calciferol) [employer] Work Phone: Start: 02-21-2016 End: 03-05-2016 Cobalamins (Vitamin B12) *B-12 [employer] Work Phone: Start: 02-21-2016 End: 03-05-2016 HbA1c *HgA1C [employer] Work Phone: Start: 02-21-2016 End: 03-05-2016 Lipid panel [AGGREGATE] *Lipid Profile [employer] Work Phone: Start: 02-21-2016 End: 03-05-2016 Thyroid stimulating hormone (TSH) *TSH [employer] Work Phone: Start: 02-21-2016 End: 03-05-2016 Urinalysis complete panel - Urine *UAC- Urinalysis, Complete w/ Micro [facility] Work Phone: Clinical Notes 03-23-2021 to 05-16-2021 [...] Locations *1: This test was performed at: [facility], [address] [place] [address], [address] [place] [address] ([place]) Summary Purpose Family History No Family History Records FoundNo Family History Records Found Advance Directives No Advanced Directives Records FoundNo Advanced Directives Records Found Additional Source Comments INFORMATION SOURCE (unrecogn ized section and content) DATE CREATED AUTHOR AUTHOR'S ORGANIZ ATION 12/07/2021 [facility] ([place]) FOR RECORDS PERTAINING TO PATIENTS WHO ARE [...] BE BASED ON THE PRIMARY CLINICAL RECORDS. [email or web address] provides no warranty or guarantee of the accuracy or completeness of information in this document.
== END | disposition home or self-care (01) ==
PROVIDERS: PCP Family Medicine; Referring Provider Family Medicine; Visit Provider Family Medicine
DX: E03.9 Hypothyroidism, unspecified (principal); E55.9 Vitamin D deficiency, unspecified
CPT/HCPCS: 36415; 82306; 84443

== ENCOUNTER → 2023-11-13 | Outpatient (CLI) | payer MEDICARE, OTHER, SELFPAY ==
--- NOTE | 2023-11-13 16:41 | CT_ITS ---
EXAM: CT ANGIOGRAPHY ABDOMEN AND PELVIS WITH RUNOFF TO THE LOWER EXTREMITIES WITH INTRAVENOUS CONTRAST CLINICAL INDICATION: atheroembolic event to right lower extremity TECHNIQUE: Helically acquired angiography images were obtained of the abdomen, pelvis and lower extremities with intravenous contrast using CTA runoff protocol. This CT exam was performed using one or more of the following dose reduction techniques: automated exposure control, adjustment of the mA and/or kV according to patient size, and/or use of iterative reconstruction technique. MIP reconstructed images were created and reviewed. CONTRAST: IV 100mL [id number] COMPARISON: No relevant prior studies available. FINDINGS: VASCULATURE: AORTA: No acute findings. Normal caliber abdominal aorta. No occlusion or significant stenosis. No dissection. CELIAC TRUNK AND MESENTERIC ARTERIES: No acute findings. No occlusion or significant stenosis. No dissection. RENAL ARTERIES: No acute findings. No occlusion or significant stenosis. No dissection. RIGHT ILIAC ARTERIES: No acute findings. No occlusion or significant stenosis. No dissection. RIGHT FEMORAL/POPLITEAL ARTERIES: There is beam hardening artifact from a right knee prosthesis which obscures visualization of portions of the distal superficial femoral and popliteal artery. No occlusion or significant stenosis. RIGHT CALF/FOOT ARTERIES: There is two-vessel runoff into the right ankle that being the anterior and posterior tibial arteries. LEFT ILIAC ARTERIES: No acute findings. No occlusion or significant stenosis. No dissection. LEFT FEMORAL/POPLITEAL ARTERIES: There is a focal occlusion of the left the superficial femoral artery which occurs approximately 17 cm above the knee joint. The vessel reconstitutes 3.5 cm distally. The left popliteal artery is patent and there is two-vessel runoff to the left leg that being the left anterior and posterior tibial arteries. LEFT CALF/FOOT ARTERIES: No acute findings. No occlusion or significant stenosis. LOWER THORAX: Unremarkable. Lung bases are clear. No cardiomegaly. No significant pericardial effusion. ABDOMEN: LIVER: Unremarkable. Homogeneous. No focal mass. GALLBLADDER AND BILE DUCTS: Unremarkable. No calcified gallstones. No gallbladder distention or wall edema. No intra- or extrahepatic biliary ductal dilation. PANCREAS: Unremarkable. No focal cystic or solid mass. SPLEEN: Unremarkable. Normal size without focal cystic or solid mass. ADRENALS: Unremarkable. No nodules. KIDNEYS AND URETERS: Unremarkable. Normal renal size and position. No hydronephrosis. STOMACH AND BOWEL: Unremarkable. No stomach or bowel distention. No focal inflammatory change. PELVIS: APPENDIX: No evidence of acute appendicitis. BLADDER: Unremarkable. REPRODUCTIVE: Unremarkable as visualized. No mass. ABDOMEN, PELVIS and LOWER EXTREMITIES: INTRAPERITONEAL SPACE: Unremarkable. No ascites or other fluid collection. No free air. BONES/JOINTS: Unremarkable. No suspicious lytic or blastic abnormality. SOFT TISSUES: Unremarkable. No discrete abdominal or pelvic wall hernia. LYMPH NODES: Unremarkable. No enlarged lymph nodes. CT/CTA Abd w/Runoff W/WO Contrast IMPRESSION: Focal occlusion of the mid to distal left superficial femoral artery which reconstitutes 3.5 cm distally. No other stenosis or occlusion is identified. There is two-vessel runoff to both ankles that being the anterior and posterior tibial arteries bilaterally. Electronically Signed: Jimy Lennon MD at 0:05 EST ,
== END | disposition home or self-care (01) ==
LOC: CT 16:40
PROVIDERS: PCP Family Medicine; Referring Provider Surgery Trauma Surgery; Visit Provider Surgery Trauma Surgery
DX: I73.9 Peripheral vascular disease, unspecified (principal); I75.021 Atheroembolism of right lower extremity; I77.1 Stricture of artery
CPT/HCPCS: 75635; Q9967

== ENCOUNTER 2023-12-25 06:51 | Day surgery (SDC) | payer MEDICARE, OTHER, SELFPAY ==
[2023-12-24 07:21] VITALS: BMI 39.5
[2023-12-25 07:03] LABS: Hematocrit 48.4 % (37-47); Hemoglobin 15.5 g/dL (12.0-15.0); Mean Corpuscular Hgb 29.9 pg (27.0-32.0); Mean Corpuscular Volume 93.3 fL (81-99); Mean Platelet Vol. 9.6 fl (6.2-12.0); Platelet Count 260 K/mm3 (150-450); RBC Distribution Width CV 14.8 % (11.6-14.6); RBC Distribution Width SD 50.7 fl (35.1-43.9); Red Blood Count 5.19 M/mm3 (4.2-5.4); White Blood Count 9.7 K/mm3 (4.4-11.0)
[2023-12-25 07:16] LABS: Anion Gap 4 (5-15); BUN 18 mg/dL (7-18); BUN/Creat Ratio 17.5 RATIO (10-20); Calcium,Total 8.8 mg/dL (8.5-10.1); Chloride 107 mmol/L (98-107); Creatinine, Serum 1.03 mg/dL (0.55-1.02); EST Glomerular Filtration Rate 56 mL/min (>60); Est Glom Filt Rate - Afr Amer 67 mL/min (>60); Estimated Creatinine Clearance 65.67 ml/min; Glucose 151 mg/dL (74-106); Potassium 4.3 mmol/L (3.5-5.1); Sodium Level 138 mmol/L (136-145)
--- NOTE | 2023-12-25 07:57 | PCM.HP.STD ---
HPI - General HPI Narrative ONEAL BROWNE, is a 73 F who presents with atheroembolic event to right foot 1st, 2nd digits, moderate arterial insufficiency. CTA revealed sfa/popliteal disease likely source. Toe is improving, no further events. [facility] Medical History Anxiety and depression Arthritis Back problem Cataracts, bilateral Chronic fatigue COVID-19 Fibromyalgia High cholesterol High triglycerides Hormone deficiency HTN (hypertension) nerve damage lower abdomen Neuropathy Osteoarthritis Pernicious anemia Pulmonary embolism Thyroid disease Type 2 diabetes mellitus Urinary tract infection with hematuria Vision problem Vitamin deficiency Home Medications alprazolam 0.5 mg tablet (Xanax) 0.5 mg PO BID PRN anxiety 03/18/18 [History Last Taken Unknown] amlodipine 5 mg tablet 5 mg PO QDAY 03/18/18 [History Last Taken 12/25/23] atorvastatin 20 mg tablet 20 mg PO QDAY 03/18/18 [History Last Taken 12/25/23] celecoxib 200 mg capsule (Celebrex) 200 mg PO BID PRN pain 03/18/18 [History Last Taken Unknown] cyclobenzaprine 10 mg tablet 10 mg PO BID PRN muscle spasm 03/18/18 [History Last Taken Unknown] flash glucose sensor (FreeStyle Eryn 10 Day Sensor kit) #1 ea 03/18/18 [Rx Last Taken Unknown] flash glucose sensor (FreeStyle Eryn 10 Day Sensor kit) #3 ea 03/18/18 [Rx Last Taken Unknown] flash glucose sensor (FreeStyle Eryn 10 Day Sensor kit) #3 ea 03/18/18 [Rx Last Taken Unknown] insulin detemir U-100 100 unit/mL subcutaneous solution (Levemir U-100 Insulin) 65 unit subcut BID 03/18/18 [History Last Taken Unknown] levothyroxine 200 mcg tablet (Synthroid) 200 mcg PO QDAY 03/18/18 [History Last Taken 12/25/23] spironolactone 25 mg tablet 25 mg PO QDAY 03/18/18 [History Last Taken Unknown] vitamin b12 IM .q month 03/18/18 [History Last Taken Unknown] OneTouch Ultra Blue Test Strip (blood sugar diagnostic) #450 ea 05/28/18 [Rx Last Taken Unknown] clopidogrel 75 mg tablet (Plavix) 75 mg PO DAILY #90 tabs 10/31/23 [Rx Last Taken Unknown] insulin lispro 100 unit/mL subcutaneous solution (Humalog U-100 Insulin) See Rx Instructions subcut TID 10/31/23 [History Last Taken Unknown] oxycodone myristate 18 mg capsule sprinkle extended release 12hr(DON'T CRUSH) (Xtampza ER) 18 mg PO BID 10/31/23 [History Last Taken 12/25/23] oxycodone-acetaminophen 5 mg-325 mg tablet (Percocet) 1 tab PO Q8H PRN pain 10/31/23 [History Last Taken 12/25/23] Allergy/AdvReac Type Severity Reaction Status Date / Time ketoconazole Allergy Severe Hives Verified 10/31/23 15:04 metronidazole [From Flagyl] Allergy Severe Anaphylaxis Verified 10/31/23 15:02 sulfamethoxazole Allergy Mild Rash Verified 10/31/23 15:04 [From Septra] trimethoprim [From Septra] Allergy Mild Unknown Verified 10/31/23 15:04 gabapentin [From Neurontin] AdvReac Severe Unknown Verified 10/31/23 15:04 Family History Unknown Cancer Heart disease Hypertension High cholesterol Skin cancer Surgical History H/O: hysterectomy Hx of cholecystectomy Pulmonary embolism S/P appendectomy S/P cataract surgery Small bowel obstruction Social History Smoking Status: Current every day smoker tobacco type: cigarettes alcohol intake: never substance use type: does not use ROS Constitutional Constitutional: Denies chills, fever(s), frequent falls, lethargy or weakness Eyes Eyes: Denies blind spots, change in vision or loss of vision ENT HEENT: Denies bleeding gums, hoarseness or sore throat Cardiovascular Cardiovascular: Denies abdominal pain, bluish discoloration of hand/feet, chest pain with activity, claudication, cold extremities, cyanosis, dyspnea on exertion, erythema on extremities, irregular heart rhythm, leg edema, leg ulcers, numbness in extremities or weakness in extremities Respiratory/Chest Respiratory/Chest: Denies cough, excessive phlegm production, shortness of breath at rest, shortness of breath with exertion or wheezing Gastrointestinal Gastrointestinal: Denies anorexia, change in stool character, constipation, diarrhea, melena or rectal bleeding Genitourinary Genitourinary: Denies dysuria or hematuria Musculoskeletal Musculoskeletal: Denies abnormal gait Integumentary Integumentary: Reports other Details: ; Denies erythema, non-healing lesions or wounds Neurologic Neurologic: Denies abnormal speech, focal weakness, headache(s), loss of vision, numbness, paresthesias or sensory deficit Hematologic/Lymphatic Hematologic/Lymphatic: Denies easy bleeding, easy bruising or lymphadenopathy Vital Signs Vital Signs Vital Signs: Weight Weight: 260 lb Body Mass Index (BMI) 39.5 Physical Exam Const alert, oriented x3, no apparent distress and healthy appearing General Appearance: cooperative; Negative for combative or lethargic Orientation / Consciousness: awake Exam Limitations: no limitations HEENT Head and Scalp: normocephalic and atraumatic Eyes EOMs intact bilaterally General Eye: normal appearance of both eyes Neck full ROM, no lymphadenopathy, thyroid normal and No no carotid bruits General: trachea midline; Negative for lymphadenopathy or tenderness Thyroid: thyroid normal Lymph Lymphatic: Negative for no lymphadenopathy noted Resp normal respiratory effort and no use of accessory muscles Effort and Inspection: Negative for labored, stridor or audible wheezes Cardio regular rate and regular rhythm Back/Spine Cervical Spine: cervical ROM normal Extremity full ROM, normal capillary refill and no clubbing, cyanosis or edema Skin no rashes or lesions noted Neuro oriented x3, CN's II-XII intact bilaterally, no focal motor deficits and no sensory deficits noted Psych thought process normal, cooperative, affect normal, speech normal and activity/motor behavior normal Results Lab / Micro Data 12/25/23 06:55 12/25/23 06:55 Labs: Laboratory Results - last 24 hr 12/25/23 06:55: WBC 9.7, RBC 5.19, Hgb 15.5 H, Hct 48.4 H, MCV 93.3, MCH 29.9, MCHC 32.0, RDW Std Deviation 50.7 H, RDW Coeff of Ela 14.8 H, Plt Count 260, MPV 9.6, Sodium 138, Potassium 4.3, Chloride 107, Carbon Dioxide 27.0, Anion Gap 4 L, BUN 18, Creatinine 1.03 H, Estim Creat Clear Calc 65.67, Est GFR (MDRD) Af Amer 67, Est GFR (MDRD) Non-Af 56 L, BUN/Creatinine Ratio 17.5, Glucose 151 H, Calcium 8.8 Assessment & Plan Assessment/Plan (1) Atherosclerosis of [place] artery of extremity with ulceration: QUALIFIERS: Peripheral atherosclerosis location: lower extremity Laterality: right Lower extremity ulceration location: other part of foot Qualified Code(s): I70.235 - Atherosclerosis of [place] arteries of right leg with ulceration of other part of foot PLAN: -angiogram
--- NOTE | 2023-12-25 09:38 | PCM.OPRPT ---
Report of Operation Date of Procedure: 12/25/23 Pre-Operative Diagnosis: atherosclerosis with ulceration right lower extremity Post-Operative Diagnosis: same Surgery/Procedure Performed:: aortogram, RLE runoff IVUS TP trunk, SFA/popliteal Atherectomy/angioplasty popliteal Surgeon: Aayush Franco Type of Anesthesia: Local and Sedation,Conscious Estimated Blood Loss (mL): 4 Description of Procedure: HPI: Patient is a 73-year-old female suffered abrupt right lower extremity digit pain and ulceration. She was found to have moderate arterial insufficiency and CT angiography revealed an unstable appearing plaque in the proximal popliteal artery which was suspected to be a source of atheroembolization. With her tissue loss and status as a diabetic and moderate arterial insufficiency is felt that treatment of the occlusive disease would be necessary both for tissue level perfusion but also to decrease the risk for recurrent embolic event. She is taken now for angiogram with possible intervention. Description of procedure: Upon obtaining informed consent and verification of correct patient procedure site the patient was taken to the [facility] where she was positioned prepped and draped in usual sterile fashion. Time was performed conscious sedation administered Versed and fentanyl. Skin overlying the left common femoral artery was anesthetized 1% lidocaine the vessel accessed under ultrasound guidance with micropuncture needle wire. This then exchanged for micropuncture sheath through which injection iliofemoral angiogram was performed revealing satisfactory positioning with no extravasation dissection. Through the micropuncture sheath a Bentson wire was advanced into the abdominal aorta the micropuncture sheath exchanged out for a short 6 [place] sheath. An Omni Flush catheter was then advanced into the abdominal aorta and digital traction aortogram pelvic angiogram was performed. We then navigated into the contralateral iliac system with the Omni Flush catheter and a glide advantage wire advancing the catheter into the distal external leg artery. From this position sequential subtraction angiography of the right lower extremity was performed. This confirmed a fragile appearing mid popliteal plaque with mobile components. Distal to this the popliteal artery was free of significant atherosclerosis and the posterior tibial and peroneal arteries had a variant configuration with peroneal artery terminating as posterior tibial at the ankle. The anterior tibial artery was moderately diseased diminutive vessel caliber distally. The peroneal artery terminating as the posterior tibial artery was a dominant perfusion into the foot. The patient was then heparinized and allowed to circulate for 3 minutes. The glide advantage wire then readvanced and the short 6 [place] sheath exchanged out for a 6 [place] destination sheath advanced into position into the mid SFA. From this position using a glide catheter and the glide advantage wire were able to navigate across the lesion staying within true lumen. After venting the catheter and the lesion subtraction angiography was performed revealing position with true lumen with no extravasation or dissection. 1 4 wire was then advanced through the catheter and the catheter withdrawn. Intravascular shunt probe was then advanced and recorded pullback performed of the tibioperoneal trunk, popliteal and SFA arteries. This confirmed position within true lumen throughout the lesion and confirmed greater than 75% stenosis of very soft fragile appearing plaque. Next a [place] rotational atherectomy device was brought in field prep for ergonomist instructions. This was then advanced in position and engaged for 2 passes across the lesion after which time it was withdrawn. The lesion was then treated with angioplasty balloon 5 mm x 40 kaci balloon inflated to nominal for 3 minutes then deflated and withdrawn. Repeat angiography confirmed satisfactory lesion response with no extravasation or dissection. This was then treated with a 5 mm x 40 [place] balloon inflated to nominal for 3 minutes then deflated and withdrawn. Completion angiography confirmed satisfactory lesion response with no extravasation or dissection and no residual stenosis. There is brisk contrast transit across the lesion and filling into the tibioperoneal trunk and the peroneal artery with no evidence of distal embolization. Seeing no further need for intervention the wires and catheters were then withdrawn and the long 6 [place] sheath exchanged for a short 6 [place] sheath. A Mynx closure device was then deployed followed by 2 minutes of manual pressure. Patient was then taken the recovery room for bedrest prior to discharge to home. Radiograph interpretation: Abdominal aorta normal caliber with no significant atherosclerosis or stenosis. Left common iliac artery patent with mild atherosclerosis but no stenosis, left external iliac arteries patent with mild diffuse atherosclerosis but no stenosis. Left common femoral artery patent with no significant atherosclerosis or stenosis. Right common iliac artery patent with no significant atherosclerosis or stenosis. Right toe and external iliac arteries patent with mild atherosclerosis but no stenosis. Right common femoral artery patent no atherosclerosis or stenosis. Right SFA patent with atherosclerosis but no focal stenosis. P2 segment of the popliteal artery with focal mobile plaque creating 75% stenosis. Distal popliteal artery normal caliber with no significant atherosclerosis or stenosis. Tibioperoneal trunk terminating solely as peroneal artery which converted to posterior tibial artery location at the ankle is normal variant. Anterior tibial artery small caliber vessel with diminutive size distally with minimal filling of the foot.
[2023-12-27 14:45] LABS: ACT Activated Clotting Time 271 sec (74-137)
== END 2023-12-25 12:35 | disposition home or self-care (01) ==
PROVIDERS: PCP Family Medicine; Referring Provider Surgery Trauma Surgery; Visit Provider Surgery Trauma Surgery
DX: I70.235 Atherosclerosis of native arteries of right leg with ulceration of other part of foot (principal); E11.621 Type 2 diabetes mellitus with foot ulcer; L97.519 Non-pressure chronic ulcer of other part of right foot with unspecified severity; E11.40 Type 2 diabetes mellitus with diabetic neuropathy, unspecified; E78.00 Pure hypercholesterolemia, unspecified; I10 Essential (primary) hypertension; F17.210 Nicotine dependence, cigarettes, uncomplicated
CPT/HCPCS: 36200; 36245; 36415; 37225; 37252; 37253; 75625; 75710; 76937; 80048; 85027; 85347; 99152; 99153; C1724; C1725; C1753; C1760; C1769; C1894; C2623; J7040; Q9967

== ENCOUNTER → 2024-01-16 | Outpatient (CLI) | payer MEDICARE, OTHER, SELFPAY ==
[2024-01-16 18:25] LABS: Free T3 1.9 pg/mL (2.18-3.98); Thyroid Stim Hormone (TSH) 0.93 uIU/mL (0.358-3.74)
== END | disposition home or self-care (01) ==
LOC: MTLAB 14:41
PROVIDERS: PCP Family Medicine; Referring Provider Family Medicine; Visit Provider Family Medicine
DX: E03.9 Hypothyroidism, unspecified (principal)
CPT/HCPCS: 36415; 84439; 84443; 84481

== ENCOUNTER → 2024-03-13 | Outpatient (CLI) | payer MEDICARE, OTHER, SELFPAY ==
--- NOTE | 2024-03-13 14:10 | RAD_ITS ---
STUDY: X-RAY - LUMBAR SPINE REASON FOR EXAM: Female, 74 years old. Pain. TECHNIQUE: 4 view(s) of the lumbar spine were obtained. COMPARISON: CT of the lumbar spine dated April 02, 2021 FINDINGS: Osteopenia. Reversal of the normal lordosis. Moderate rotatory dextroscoliosis, slightly progressed since the prior study. Endplate cavities compatible with osteopenia. Normal vertebral alignment. Diffuse moderate to marked lower thoracic and lumbosacral facet sclerosis. Diffuse intervertebral disc space narrowing with osteophytes most marked at L1-2, L2-3 and L3-4. Marked vascular calcification. Clips projected over the right midabdomen. RAD/L/S Spine Min 4 Views IMPRESSION: Osteopenia with slight progression of moderate to marked lumbosacral spondylosis compared to the prior study. No acute abnormality or erosive changes. Electronically Signed: Maikel Yanez MD at 15:09 EDT ,
== END | disposition home or self-care (01) ==
PROVIDERS: PCP Family Medicine; Referring Provider Clinical Nurse Specialist Adult Health; Visit Provider Clinical Nurse Specialist Adult Health
DX: M51.36 Other intervertebral disc degeneration, lumbar region (principal)
CPT/HCPCS: 72110

== ENCOUNTER → 2024-06-29 | Outpatient (CLI) | payer MEDICARE, OTHER, SELFPAY ==
[2024-06-29 16:18] LABS: AST(SGOT) 12 U/L (15-37); Alanine Aminotransfer ALT/SGPT 17 U/L (13-56); Albumin, Serum 3.7 g/dL (3.2-5.0); Alkaline Phosphatase 79 U/L (45-117); Anion Gap 8 (5-15); BUN 18 mg/dL (7-18); BUN/Creat Ratio 16.2 RATIO (10-20); Calcium,Total 9.4 mg/dL (8.5-10.1); Chloride 105 mmol/L (98-107); Creatinine, Serum 1.11 mg/dL (0.55-1.02); EST Glomerular Filtration Rate 51 mL/min (>60); Est Glom Filt Rate - Afr Amer 62 mL/min (>60); Free T3 2.4 pg/mL (2.18-3.98); Globulin 3.7 g/dL (2.2-4.2); Glucose 105 mg/dL (74-106); Potassium 3.9 mmol/L (3.5-5.1); Protein, Total 7.4 g/dL (6.4-8.2); Sodium Level 139 mmol/L (136-145); T4 Free Direct 1.01 ng/dL (0.76-1.46)
== END | disposition home or self-care (01) ==
LOC: MTLAB 13:04
PROVIDERS: PCP Family Medicine; Referring Provider Family Medicine; Visit Provider Family Medicine
DX: E03.9 Hypothyroidism, unspecified (principal)
CPT/HCPCS: 36415; 80053; 84439; 84443; 84481

== ENCOUNTER → 2024-07-27 | Outpatient (CLI) | payer MEDICARE, OTHER, SELFPAY | END | disposition home or self-care (01) | PROVIDERS: PCP Family Medicine; Referring Provider Anesthesiology Pain Medicine; Visit Provider Anesthesiology Pain Medicine | DX: M16.11 Unilateral primary osteoarthritis, right hip (principal) | CPT/HCPCS: 73502 ==

== ENCOUNTER → 2024-11-02 | Outpatient (CLI) | payer MEDICARE, OTHER, SELFPAY ==
[2024-11-02 18:39] LABS: T4 Free Direct 1.11 ng/dL (0.76-1.46)
== END | disposition home or self-care (01) ==
LOC: MTLAB 14:09
PROVIDERS: PCP Family Medicine; Referring Provider Family Medicine; Visit Provider Family Medicine
DX: E03.9 Hypothyroidism, unspecified (principal)
CPT/HCPCS: 36415; 84439; 84443; 84481

== ENCOUNTER → 2025-02-03 | Outpatient (CLI) | payer MEDICARE, OTHER, SELFPAY ==
[2025-02-03 11:06] LABS: Absolute Lymphocyte Count 3.13 X10^3/uL (0.83-4.51); Absolute Neutrophil Count 5.3 X10^3/uL (2.0-7.7); Basophil# 0.22 X10^3/uL; Basophil% 2.2 % (0-1); Eosinophil# 0.43 X10^3/uL; Eosinophils% 4.3 % (0-5); Hematocrit 49.1 % (37-47); Hemoglobin 16.1 g/dL (12.0-15.0); Lymphocyte # 3.13 X10^3/ul (0.83-4.51); Lymphocyte % 31.2 % (19-41); Mean Corp Hgb Conc 32.8 g/dL (32-36); Mean Corpuscular Hgb 30.8 pg (27.0-32.0); Mean Corpuscular Volume 94.1 fL (81-99); Mean Platelet Vol. 9.9 fl (6.2-12.0); Monocyte# 0.84 X10^3/uL; Monocyte% 8.4 % (0-10); NRBC Flagged by Analyzer 0 % (0-5); Neutrophil % 52.9 % (47-70); Platelet Count 259 K/mm3 (150-450); RBC Distribution Width SD 51.9 fl (35.1-43.9); Red Blood Count 5.22 M/mm3 (4.2-5.4)
[2025-02-03 11:57] LABS: Hemoglobin A1c 6.5 % (<=5.6)
[2025-02-03 12:46] LABS: ALB/GLOB Ratio 1.2 RATIO (0.9-2.4); AST(SGOT) 17 U/L (<=31); Alanine Aminotransfer ALT/SGPT 10 U/L (<=34); Albumin, Serum 3.9 g/dL (3.4-4.8); Alkaline Phosphatase 75 U/L (35-104); Anion Gap 14 (5-15); BUN 13 mg/dL (4-19); BUN/Creat Ratio 13.6 RATIO (10-20); Calcium,Total 9.1 mg/dL (7.6-11.0); Carbon Dioxide 20.8 mmol/L (21.0-32.0); Chloride 103 mmol/L (98-108); Creatinine, Serum 0.99 mg/dL (0.70-1.20); EST Glomerular Filtration Rate 60 (>60); Free T3 3.2 pg/mL (2.18-3.98); Globulin 3.2 g/dL (2.2-4.2); Glucose 123 mg/dL (70-99); Potassium 4.3 mmol/L (3.3-5.1); Protein, Total 7.2 g/dL (5.9-8.4); Sodium Level 138 mmol/L (133-145); Total Bilirubin 0.33 mg/dL (0.00-1.30)
== END | disposition home or self-care (01) ==
LOC: LAB 08:20
PROVIDERS: PCP Family Medicine; Referring Provider Family Medicine; Visit Provider Family Medicine
DX: I10 Essential (primary) hypertension (principal); E03.8 Other specified hypothyroidism; Z51.81 Encounter for therapeutic drug level monitoring
CPT/HCPCS: 36415; 80053; 83036; 84439; 84443; 84481; 85025